=== PATIENT | female | born 1945 | race Caucasian/White ===

== ENCOUNTER 2017-11-19 11:16 | Emergency (ER) | payer MEDICARE ==
[~2017-11-19] VITALS: Ht 165.1 cm; Wt 105.7 kg
[~2017-11-19 11:16] MED LIST: ALLO100T30 PO; BUDE10.2 INH; CALC-451 PO; CEFD300C37 PO; CHOL200024 PO; FERR325T5 PO; LOVA10TA PO; METR500T PO; OMEP-110 PO; TIOT18CA INH
[2017-11-19 11:51] LABS: BASOPHILS # (AUTO) 0.02 x10^3/uL (0-0.1); BASOPHILS % (AUTO) 0 % (0-1); EOSINOPHILS % (AUTO) 2 % (1-7); LYMPHOCYTES # (AUTO) 1.07 x10^3/uL (1-3.4); LYMPHOCYTES % (AUTO) 15 % (22-44); MD NO; MEAN CORPUSCULAR HEMOGLOBIN 25.2 pg (27.0-34.8); MEAN CORPUSCULAR HGB CONC 31.8 g/dL (32.4-35.8); MEAN CORPUSCULAR VOLUME 79.3 fL (80-100); MONOCYTES % (AUTO) 6 % (2-9); NEUTROPHILS # (AUTO) 5.34 x10^3/uL (1.8-6.8); NEUTROPHILS % (AUTO) 77 % (42-75); PLATELET COUNT 170 x10^3/uL (130-400); RED BLOOD COUNT 3.69 x10^6/uL (3.82-5.3); RED CELL DISTRIBUTION WIDTH 15.9 % (9.6-15.2)
[2017-11-19 11:56] LABS: PROTHROMBIN TIME 10.3 Seconds (9.6-11.5)
[2017-11-19 12:00] LABS: ALBUMIN 3.5 g/dL (3.4-5.0); ANION GAP 3 mmol/L (5-15); CALCIUM 8.4 mg/dL (8.5-10.1); CHLORIDE 95 mmol/L (98-107)
[2017-11-19 12:05] LABS: ALANINE AMINOTRANSFERASE 19 U/L (12-78); ALKALINE PHOSPHATASE 67 U/L (45-117); BILIRUBIN,TOTAL 0.5 mg/dL (0.2-1.0); CREATININE 1.17 mg/dL (0.55-1.02)
[2017-11-19 12:13] VITALS: BP 189/66
== END 2017-11-19 12:56 | disposition home or self-care (01) ==
LOC: ED 12:43
DX: K92.1 Melena (principal); R53.83 Other fatigue; Z90.49 Acquired absence of other specified parts of digestive tract
CPT/HCPCS: 36415; 80053; 85025; 85610; 85730; 86677; 86850; 86900; 93005; 99285

== ENCOUNTER 2018-04-14 14:56 | Inpatient (IN) | payer MEDICARE ==
[~2018-04-14] VITALS: Ht 165.1 cm; Wt 113.5 kg
[2018-04-14] VITALS (7 sets, daily range): BP systolic 106–138; BP diastolic 44–80
[2018-04-14] MEDS ORDERED: methylPREDNISolone SOD SUCC 125 MG/2 ML IVP ONE (15:30)
[2018-04-14] MEDS ORDERED: MAGNESIUM SULFATE PMX 2GM/50ML 50 ML IVPB ONE (15:30)
[2018-04-14] MEDS ORDERED: ALBUTEROL/IPRATROPIUM 2.5MG/0.5MG, 3 ML NPPB ONE ×2 (15:30→18:00)
[2018-04-14] MEDS ORDERED: SODIUM CHLORIDE FLUSH 10ML SYR IVF ONE (15:30)
[2018-04-14] MEDS ORDERED: ALBUTEROL/IPRATROPIUM 2.5MG/0.5MG, 3 ML ONE (15:40)
[2018-04-14] MEDS ORDERED: methylPREDNISolone SOD SUCC 125 MG/2 ML ONE (15:41)
[2018-04-14 16:05] LABS: INTERNATIONAL NORMALIZED RATIO 0.96 (0.93-1.1); PROTHROMBIN TIME 9.9 Seconds (9.6-11.5)
[2018-04-14 16:07] LABS: ALBUMIN 3.1 g/dL (3.4-5.0)
[2018-04-14 16:09] LABS: MEAN CORPUSCULAR HGB CONC 31.5 g/dL (32.4-35.8); MEAN CORPUSCULAR VOLUME 79.6 fL (80-100); MEAN PLATELET VOLUME 7.4 fL (7.4-10.4); PLATELET COUNT 179 x10^3/uL (130-400); RED BLOOD COUNT 2.47 x10^6/uL (3.82-5.3); RED CELL DISTRIBUTION WIDTH 16.7 % (9.6-15.2)
[2018-04-14 16:11] LABS: TROPONIN I < 0.015 ng/mL (0.000-0.045)
[2018-04-14 16:21] LABS: ANION GAP 2 mmol/L (5-15); CALCIUM 8.5 mg/dL (8.5-10.1); CHLORIDE 87 mmol/L (98-107); CREATININE 1.09 mg/dL (0.55-1.02)
[2018-04-14 16:28] LABS: MD YES
[2018-04-14 16:35] LABS: ANISOCYTOSIS 1+; BAND#(MANUAL) 0.08 x10^3/uL; BANDS%(MANUAL) 1 % (0-7); BASOS#(MANUAL) 0.17 x10^3/uL (0-0.1); BASOS% (MANUAL) 2 % (0-1); EOS#(MANUAL) 0.17 x10^3/uL (0.0-0.4); EOS% (MANUAL) 2 % (1-7); HYPOCHROMIA 1+; LYMPHS% (MANUAL) 12 % (22-44); MICROCYTOSIS 1+; MONOS% (MANUAL) 6 % (2-9); SEG#(MANUAL) 6.39 x10^3/uL (1.8-6.8); SEGS% (MANUAL) 77 % (42-75)
[2018-04-14 16:37] LABS: OVALOCYTES 1+
[2018-04-14 16:44] LABS: STOMATOCYTES 1+
[2018-04-14 16:45] LABS: BASOPHILLIC STIPPLING 2+
[2018-04-14 16:49] LABS: <PLATELET ESTIMATE> ADEQUATE; <PLT MORPHOLOGY> NORMAL PLT MORPH
[2018-04-14] MEDS ORDERED: PANTOPRAZOLE 80 MG in SODIUM CHLORIDE 0.9% 100 ML IV SCH (17:49)
[2018-04-14] MEDS ORDERED: PANTOPRAZOLE 80 MG in SODIUM CHLORIDE 0.9% 50 ML IVPB ONE (17:49)
[2018-04-14] MEDS: PANTOPRAZOLE 80 MG in SODIUM CHLORIDE 0.9% 100 ML IV SCH (18:45)
[2018-04-14] MEDS ORDERED: SODIUM CHLORIDE FLUSH 10ML SYR IVF PRN (20:00)
[2018-04-14] MEDS ORDERED: DOCUSATE 100 MG CAPSULE PO PRN (20:30)
[2018-04-14] MEDS ORDERED: ONDANSETRON ODT 4 MG PO PRN (20:30)
[2018-04-14] MEDS ORDERED: TEMAZEPAM 15 MG CAPSULE PO PRN (20:30)
[2018-04-14] MEDS ORDERED: hydrALAzine 20 MG/ML, 1ML IVPush PRN (20:30)
[2018-04-14] MEDS: INSULIN LISPRO 100 UNITS/ML, PEN SQ-INSULIN SCH (21:00)
[2018-04-14] MEDS ORDERED: TEMPLATE NON-FORMULARY MED. (Budesonide/Formoterol Fumarate (Symbicort 160-4.5 Mcg Inhaler INH SCH (21:00)
[2018-04-14] MEDS ORDERED: IPRATROPIUM 0.5 MG/2.5 ML INHA HHN PRN (22:30)
[2018-04-15 00:15] VITALS: BP 128/76
[2018-04-15] MEDS: methylPREDNISolone SOD SUCC 40 MG/ML IVPush SCH ×3 (00:21→15:35)
[2018-04-15 00:22] VITALS: BP 128/76
[2018-04-15] MEDS: PANTOPRAZOLE 80 MG in SODIUM CHLORIDE 0.9% 100 ML IV SCH ×2 (04:19→16:19)
[2018-04-15 04:58] LABS: MEAN CORPUSCULAR HGB CONC 31.9 g/dL (32.4-35.8); MEAN CORPUSCULAR VOLUME 81.4 fL (80-100); MEAN PLATELET VOLUME 7.3 fL (7.4-10.4); PLATELET COUNT 180 x10^3/uL (130-400); RED BLOOD COUNT 3.35 x10^6/uL (3.82-5.3); RED CELL DISTRIBUTION WIDTH 16.3 % (9.6-15.2)
[2018-04-15 05:11] LABS: CALCIUM 8.9 mg/dL (8.5-10.1); CREATININE 0.99 mg/dL (0.55-1.02)
[2018-04-15 05:22] LABS: MD YES
[2018-04-15 05:24] LABS: ANISOCYTOSIS 1+; BAND#(MANUAL) 0.24 x10^3/uL; BANDS%(MANUAL) 3 % (0-7); LYMPH#(MANUAL) 0.32 x10^3/uL (1-3.4); LYMPHS% (MANUAL) 4 % (22-44); MONOS#(MANUAL) 0.08 x10^3/uL (0.3-2.7); MONOS% (MANUAL) 1 % (2-9); OVALOCYTES 1+; POLYCHROMASIA 1+; SEG#(MANUAL) 7.27 x10^3/uL (1.8-6.8); SEGS% (MANUAL) 92 % (42-75)
[2018-04-15 05:25] LABS: <PLATELET ESTIMATE> ADEQUATE; BASOPHILLIC STIPPLING 1+; MICROCYTOSIS 1+; STOMATOCYTES 1+
[2018-04-15 05:26] LABS: <PLT MORPHOLOGY> NORMAL PLT MORPH
[2018-04-15 05:36] LABS: ANION GAP 3 mmol/L (5-15); CHLORIDE 90 mmol/L (98-107)
[2018-04-15 06:49] VITALS: BP 126/84
[2018-04-15] MEDS: ALBUTEROL/IPRATROPIUM 2.5MG/0.5MG, 3 ML NPPB SCH ×4 (06:55→20:00)
[2018-04-15] MEDS: INSULIN LISPRO 100 UNITS/ML, PEN SQ-INSULIN SCH ×4 (07:00→21:03)
[2018-04-15] MEDS ORDERED: ACETAMINOPHEN 325 MG TABLET ONE (08:12)
[2018-04-15] MEDS ORDERED: ACETAMINOPHEN 325 MG TABLET PO PRN (08:30)
[2018-04-15 08:39] LABS: ALANINE AMINOTRANSFERASE 17 U/L (12-78); ALBUMIN 3.2 g/dL (3.4-5.0)
[2018-04-15] MEDS: FLUTICASONE/VILANTEROL 200-25MCG/INH INH SCH (08:40)
[2018-04-15 08:41] LABS: ALKALINE PHOSPHATASE 68 U/L (45-117); BILIRUBIN,TOTAL 0.4 mg/dL (0.2-1.0); TOTAL PROTEIN 7.4 g/dL (6.4-8.2)
[2018-04-15 09:08] LABS: HEMOGLOBIN A1C 4.7 % (4.2-6.3)
[2018-04-15 13:14] VITALS: BP 98/59
[2018-04-15] MEDS: SODIUM CHLORIDE 0.9% 1,000 ML IV SCH (15:36)
[2018-04-15 19:21] VITALS: BP 94/64
[2018-04-16] MEDS: methylPREDNISolone SOD SUCC 40 MG/ML IVPush SCH ×4 (00:16→23:52)
[2018-04-16] MEDS: SODIUM CHLORIDE 0.9% 1,000 ML IV SCH ×4 (00:16→23:52)
[2018-04-16] MEDS: PANTOPRAZOLE 80 MG in SODIUM CHLORIDE 0.9% 100 ML IV SCH ×3 (02:12→23:52)
[2018-04-16 02:22] VITALS: BP 138/79
[2018-04-16 05:42] LABS: BASOPHILS % (AUTO) 0 % (0-1); EOSINOPHILS % (AUTO) 0 % (1-7); LYMPHOCYTES # (AUTO) 0.49 x10^3/uL (1-3.4); LYMPHOCYTES % (AUTO) 5 % (22-44); MD NO; MEAN CORPUSCULAR HEMOGLOBIN 26.5 pg (27.0-34.8); MEAN CORPUSCULAR HGB CONC 32.2 g/dL (32.4-35.8); MEAN CORPUSCULAR VOLUME 82.3 fL (80-100); MEAN PLATELET VOLUME 7.5 fL (7.4-10.4); MONOCYTES # (AUTO) 0.16 x10^3/uL (0.2-0.8); MONOCYTES % (AUTO) 2 % (2-9); NEUTROPHILS # (AUTO) 9.12 x10^3/uL (1.8-6.8); NEUTROPHILS % (AUTO) 93 % (42-75); PLATELET COUNT 192 x10^3/uL (130-400); RED BLOOD COUNT 3.29 x10^6/uL (3.82-5.3); RED CELL DISTRIBUTION WIDTH 16.4 % (9.6-15.2)
[2018-04-16 05:59] LABS: HEMOGLOBIN A1C 4.7 % (4.2-6.3)
[2018-04-16] MEDS: ALBUTEROL/IPRATROPIUM 2.5MG/0.5MG, 3 ML NPPB SCH ×4 (08:10→20:14)
[2018-04-16 08:22] VITALS: BP 122/79
[2018-04-16] MEDS: INSULIN LISPRO 100 UNITS/ML, PEN SQ-INSULIN SCH ×4 (08:24→19:35)
[2018-04-16] MEDS: FLUTICASONE/VILANTEROL 200-25MCG/INH INH SCH (08:25)
[2018-04-16] MEDS ORDERED: ALBUTEROL SULFATE 2.5 MG/3 ML NPPB PRN (12:30)
[2018-04-16 19:21] LABS: BASOPHILS # (AUTO) 0.13 x10^3/uL (0-0.1); BASOPHILS % (AUTO) 1 % (0-1); EOSINOPHILS # (AUTO) 0.01 x10^3/uL (0-0.4); EOSINOPHILS % (AUTO) 0 % (1-7); LYMPHOCYTES # (AUTO) 0.42 x10^3/uL (1-3.4); LYMPHOCYTES % (AUTO) 4 % (22-44); MD NO; MEAN CORPUSCULAR HEMOGLOBIN 26.3 pg (27.0-34.8); MEAN CORPUSCULAR VOLUME 82.3 fL (80-100); MEAN PLATELET VOLUME 7.3 fL (7.4-10.4); MONOCYTES % (AUTO) 3 % (2-9); NEUTROPHILS # (AUTO) 10.71 x10^3/uL (1.8-6.8); NEUTROPHILS % (AUTO) 93 % (42-75); PLATELET COUNT 222 x10^3/uL (130-400); RED CELL DISTRIBUTION WIDTH 15.8 % (9.6-15.2)
[2018-04-16 19:33] LABS: CALCIUM 8.1 mg/dL (8.5-10.1); CREATININE 1.15 mg/dL (0.55-1.02)
[2018-04-16 19:48] LABS: ANION GAP 7 mmol/L (5-15); CHLORIDE 95 mmol/L (98-107)
[2018-04-16 20:33] VITALS: BP 110/72
[2018-04-17 01:50] VITALS: BP 115/54
[2018-04-17] MEDS: ALBUTEROL/IPRATROPIUM 2.5MG/0.5MG, 3 ML NPPB SCH ×4 (03:00→21:00)
[2018-04-17] MEDS: INSULIN LISPRO 100 UNITS/ML, PEN SQ-INSULIN SCH ×4 (07:00→20:09)
[2018-04-17 07:14] VITALS: BP 110/71
[2018-04-17] MEDS: SODIUM CHLORIDE 0.9% 1,000 ML IV SCH ×2 (07:53→18:00)
[2018-04-17] MEDS: methylPREDNISolone SOD SUCC 40 MG/ML IVPush SCH ×2 (07:53→16:00)
[2018-04-17] MEDS: FLUTICASONE/VILANTEROL 200-25MCG/INH INH SCH (07:53)
[2018-04-17] MEDS: PANTOPRAZOLE 80 MG in SODIUM CHLORIDE 0.9% 100 ML IV SCH ×2 (10:28→20:09)
[2018-04-17] MEDS ORDERED: FENTANYL PF 100 MCG/2ML ONE (12:08)
[2018-04-17] MEDS ORDERED: MIDAZOLAM 1 MG/ML, 5ML ONE (12:08)
[2018-04-17 13:00] VITALS: BP 137/74
[2018-04-17 18:13] LABS: % IRON SATURATION 6 % (20-55); IRON LEVEL 23 mcg/dL (50-170); TOTAL IRON BINDING CAPACITY 390 mcg/dL (250-450)
[2018-04-17 20:23] VITALS: BP 105/73
[2018-04-18] MEDS: methylPREDNISolone SOD SUCC 40 MG/ML IVPush SCH ×4 (00:50→23:59)
[2018-04-18 02:14] VITALS: BP 103/61
[2018-04-18] MEDS: SODIUM CHLORIDE 0.9% 1,000 ML IV SCH ×3 (02:19→19:20)
[2018-04-18] MEDS: ALBUTEROL/IPRATROPIUM 2.5MG/0.5MG, 3 ML NPPB SCH ×4 (03:00→19:51)
[2018-04-18 04:39] LABS: CHLORIDE 98 mmol/L (98-107)
[2018-04-18 04:44] LABS: ANION GAP 4 mmol/L (5-15); CALCIUM 8.1 mg/dL (8.5-10.1)
[2018-04-18 04:45] LABS: ALANINE AMINOTRANSFERASE 24 U/L (12-78); ALKALINE PHOSPHATASE 60 U/L (45-117); BILIRUBIN,TOTAL 0.3 mg/dL (0.2-1.0); TOTAL PROTEIN 6.7 g/dL (6.4-8.2)
[2018-04-18 05:09] LABS: BASOPHILS % (AUTO) 0 % (0-1); EOSINOPHILS # (AUTO) 0.02 x10^3/uL (0-0.4); EOSINOPHILS % (AUTO) 0 % (1-7); LYMPHOCYTES # (AUTO) 0.63 x10^3/uL (1-3.4); LYMPHOCYTES % (AUTO) 7 % (22-44); MD NO; MEAN CORPUSCULAR HEMOGLOBIN 26.3 pg (27.0-34.8); MEAN CORPUSCULAR HGB CONC 31.9 g/dL (32.4-35.8); MEAN CORPUSCULAR VOLUME 82.3 fL (80-100); MEAN PLATELET VOLUME 7.3 fL (7.4-10.4); MONOCYTES # (AUTO) 0.24 x10^3/uL (0.2-0.8); MONOCYTES % (AUTO) 3 % (2-9); NEUTROPHILS # (AUTO) 8.34 x10^3/uL (1.8-6.8); NEUTROPHILS % (AUTO) 90 % (42-75); PLATELET COUNT 210 x10^3/uL (130-400); RED BLOOD COUNT 3.56 x10^6/uL (3.82-5.3); RED CELL DISTRIBUTION WIDTH 16.3 % (9.6-15.2)
[2018-04-18] MEDS: PANTOPRAZOLE 80 MG in SODIUM CHLORIDE 0.9% 100 ML IV SCH ×2 (06:15→16:52)
[2018-04-18] MEDS: INSULIN LISPRO 100 UNITS/ML, PEN SQ-INSULIN SCH ×4 (07:00→21:20)
[2018-04-18 08:06] VITALS: BP 123/76
[2018-04-18] MEDS: FLUTICASONE/VILANTEROL 200-25MCG/INH INH SCH (08:22)
[2018-04-18] MEDS: IRON SUCROSE COMPLEX 100MG/5ML IV SCH (09:09)
[2018-04-18 14:09] VITALS: BP 108/69
[2018-04-18 20:00] VITALS: BP 115/67
[2018-04-19 01:47] VITALS: BP 124/75
[2018-04-19] MEDS: PANTOPRAZOLE 80 MG in SODIUM CHLORIDE 0.9% 100 ML IV SCH (02:56)
[2018-04-19] MEDS: ALBUTEROL/IPRATROPIUM 2.5MG/0.5MG, 3 ML NPPB SCH ×3 (03:00→15:00)
[2018-04-19] MEDS: SODIUM CHLORIDE 0.9% 1,000 ML IV SCH ×4 (03:08→17:10)
[2018-04-19] MEDS: INSULIN LISPRO 100 UNITS/ML, PEN SQ-INSULIN SCH ×3 (07:00→16:42)
[2018-04-19 08:05] VITALS: BP 98/62
[2018-04-19] MEDS: methylPREDNISolone SOD SUCC 40 MG/ML IVPush SCH ×2 (08:25→16:00)
[2018-04-19] MEDS: FLUTICASONE/VILANTEROL 200-25MCG/INH INH SCH (08:25)
[2018-04-19] MEDS: IRON SUCROSE COMPLEX 100MG/5ML IV SCH (08:25)
[2018-04-19] MEDS ORDERED: PRED10TA PO (09:44)
[2018-04-19] MEDS ORDERED: FERR325T18 PO (09:44)
[2018-04-19] MEDS ORDERED: IPRA3AMP30 NPPB (09:44)
[2018-04-19] MEDS ORDERED: AZIT500T5 PO (09:44)
[2018-04-19] MEDS ORDERED: ONDA4TAB13 PO (09:44)
[2018-04-19] MEDS ORDERED: SUCR1TAB33 PO (09:46)
[2018-04-19] MEDS ORDERED: OMEP-110 PO (09:46)
[2018-04-19] MEDS ORDERED: OMEPRAZOLE 20 MG CAPSULE.DR PO SCH (11:30)
[2018-04-19] MEDS ORDERED: OMNIPAQUE 350 MG/ML, 100ML BOTTLE ONE (11:33)
[2018-04-19 12:20] VITALS: BP 108/63
== END 2018-04-19 18:39 | disposition home or self-care (01) | DRG 393 ==
LOC: ED 17:46 → 4WST 21:32
PROVIDERS: ADMIT Family Medicine; ATTEND Internal Medicine
PROC: 30233N1 Transfusion of Nonautologous Red Blood Cells into Peripheral Vein, Percutaneous Approach (ICD-10-PCS; principal; 2018-04-14)
PROC: 0DB78ZX Excision of Stomach, Pylorus, Via Natural or Artificial Opening Endoscopic, Diagnostic (ICD-10-PCS; 2018-04-17)
PROC: 0DB68ZZ Excision of Stomach, Via Natural or Artificial Opening Endoscopic (ICD-10-PCS; 2018-04-17)
PROC: 0W3P8ZZ Control Bleeding in Gastrointestinal Tract, Via Natural or Artificial Opening Endoscopic (ICD-10-PCS; 2018-04-17)
DX: K31.7 Polyp of stomach and duodenum (principal); J96.20 Acute and chronic respiratory failure, unspecified whether with hypoxia or hypercapnia; K92.2 Gastrointestinal hemorrhage, unspecified; J44.1 Chronic obstructive pulmonary disease with (acute) exacerbation; D62 Acute posthemorrhagic anemia; E87.1 Hypo-osmolality and hyponatremia; Z68.41 Body mass index [BMI] 40.0-44.9, adult; E66.01 Morbid (severe) obesity due to excess calories; E87.5 Hyperkalemia; E78.5 Hyperlipidemia, unspecified; D50.9 Iron deficiency anemia, unspecified; K29.60 Other gastritis without bleeding; K59.09 Other constipation; K21.0 Gastro-esophageal reflux disease with esophagitis; I11.9 Hypertensive heart disease without heart failure; N28.9 Disorder of kidney and ureter, unspecified; K44.9 Diaphragmatic hernia without obstruction or gangrene; Z86.010 Personal history of colon polyps; Z87.442 Personal history of urinary calculi; Z86.718 Personal history of other venous thrombosis and embolism; Z87.891 Personal history of nicotine dependence; Z99.81 Dependence on supplemental oxygen; Z90.49 Acquired absence of other specified parts of digestive tract
CPT/HCPCS: 36415; 36430; 71045; 71275; 80048; 80053; 82040; 82962; 83036; 83540; 83550; 84484; 85014; 85018; 85025; 85610; 85730; 86850; 86900; 86923; 88305; 93005; 94640; 96365; 96366; 96375; 99152; 99153; G0378; J1756; J2250; J3010; J7620; Q9967; C9113; J1815; J2920; J2930; J3475; J7030; P9016

== ENCOUNTER 2018-04-27 09:56 | Inpatient (IN) | payer MEDICARE ==
[~2018-04-27] VITALS: Ht 167.6 cm; Wt 99.1 kg
[~2018-04-27 09:56] MED LIST changes: +AZIT500T5 PO; +FERR325T18 PO; +IPRA3AMP30 NPPB; +ONDA4TAB13 PO; +PRED10TA PO; +SUCR1TAB33 PO
[2018-04-27] MEDS ORDERED: SODIUM CHLORIDE 0.9% 1,000ML IVBOLUS ONE ×2 (10:30→13:00)
[2018-04-27] MEDS ORDERED: OMNIPAQUE 350 MG/ML, 100ML BOTTLE ONE (10:33)
[2018-04-27] MEDS ORDERED: ALBUTEROL/IPRATROPIUM 2.5MG/0.5MG, 3 ML ONE (10:34)
[2018-04-27 10:40] LABS: MEAN CORPUSCULAR HEMOGLOBIN 26.3 pg (27.0-34.8); MEAN CORPUSCULAR HGB CONC 31.6 g/dL (32.4-35.8); MEAN CORPUSCULAR VOLUME 83.2 fL (80-100); MEAN PLATELET VOLUME 7.9 fL (7.4-10.4); PLATELET COUNT 298 x10^3/uL (130-400); RED BLOOD COUNT 4.06 x10^6/uL (3.82-5.3); RED CELL DISTRIBUTION WIDTH 17.7 % (9.6-15.2)
[2018-04-27 10:51] LABS: ANION GAP 8 mmol/L (5-15); CALCIUM 8.9 mg/dL (8.5-10.1); CHLORIDE 91 mmol/L (98-107); CREATININE 1.43 mg/dL (0.55-1.02)
[2018-04-27 10:55] LABS: TROPONIN I < 0.015 ng/mL (0.000-0.045)
[2018-04-27 11:00] LABS: MD YES
[2018-04-27] MEDS ORDERED: PIPERACILLIN/TAZO/PMX 3.375GM 50 ML IVPB ONE (11:00)
[2018-04-27] MEDS ORDERED: PIPERACILLIN/TAZO/PMX 3.375GM 50 ML ONE (11:00)
[2018-04-27] MEDS ORDERED: ALBUTEROL/IPRATROPIUM 2.5MG/0.5MG, 3 ML NEB ONE (11:00)
[2018-04-27] MEDS ORDERED: VANCOMYCIN PER PHARMACY MC ONE (11:00)
[2018-04-27] MEDS ORDERED: VANCOMYCIN 1,500 MG in SODIUM CHLORIDE 0.9% 250 ML IV ONE (11:00)
[2018-04-27 11:01] LABS: ANISOCYTOSIS 1+; BAND#(MANUAL) 1.49 x10^3/uL; BANDS%(MANUAL) 3 % (0-7); LYMPH#(MANUAL) 2.49 x10^3/uL (1-3.4); LYMPHS% (MANUAL) 5 % (22-44); MONOS#(MANUAL) 1.49 x10^3/uL (0.3-2.7); MONOS% (MANUAL) 3 % (2-9); POLYCHROMASIA 1+; SEG#(MANUAL) 44.32 x10^3/uL (1.8-6.8); SEGS% (MANUAL) 89 % (42-75)
[2018-04-27 11:02] LABS: <PLATELET ESTIMATE> ADEQUATE; <PLT MORPHOLOGY> NORMAL PLT MORPH
[2018-04-27] MEDS ORDERED: VANCOMYCIN PER PHARMACY MC PRN (12:00)
[2018-04-27] MEDS ORDERED: PIPERACILLIN/TAZO/PMX 4.5GM 100 ML IV SCH (12:00)
[2018-04-27] MEDS ORDERED: PHARMACY MAY ADJ FOR RENAL FX MC PRN (12:00)
[2018-04-27] MEDS: SODIUM CHLORIDE 0.9% 1,000 ML IV SCH ×2 (12:05→21:00)
[2018-04-27] MEDS ORDERED: ACETAMINOPHEN 325 MG TABLET PO PRN (12:30)
[2018-04-27] MEDS ORDERED: ONDANSETRON ODT 4 MG PO PRN (12:30)
[2018-04-27] MEDS ORDERED: HEPARIN 5,000 UNITS/ML, 1ML SQ SCH (12:30)
[2018-04-27 12:38] VITALS: BP 106/75
[2018-04-27] MEDS ORDERED: PHARMACOKINETIC CONSULTATION MC ONE (13:00)
[2018-04-27] MEDS ORDERED: PHARMACOKINETIC MONITORING MC PRN (13:00)
[2018-04-27] MEDS ORDERED: IPRATROPIUM 0.5 MG/2.5 ML INHA NPPB PRN (13:00)
[2018-04-27 13:02] VITALS: BP 106/65
[2018-04-27] MEDS: ALBUTEROL/IPRATROPIUM 2.5MG/0.5MG, 3 ML NPPB SCH ×2 (14:56→19:44)
[2018-04-27] MEDS: SUCRALFATE 1 GM/10 ML UDC PO SCH ×2 (17:20→20:37)
[2018-04-27] MEDS: PIPERACILLIN/TAZO/PMX 4.5GM 100 ML IV SCH ×2 (17:20→22:59)
[2018-04-27 20:00] VITALS: BP 148/99
[2018-04-27] MEDS: LOVASTATIN 10 MG TABLET PO SCH (20:37)
[2018-04-28 01:49] VITALS: BP 120/70
[2018-04-28] MEDS: SODIUM CHLORIDE 0.9% 1,000 ML IV SCH ×3 (05:04→23:03)
[2018-04-28] MEDS: PIPERACILLIN/TAZO/PMX 4.5GM 100 ML IV SCH ×4 (05:04→23:03)
[2018-04-28 05:38] LABS: CHLORIDE 101 mmol/L (98-107)
[2018-04-28 05:48] LABS: ALANINE AMINOTRANSFERASE 53 U/L (12-78); ALBUMIN 2.1 g/dL (3.4-5.0); ALKALINE PHOSPHATASE 81 U/L (45-117); ANION GAP 3 mmol/L (5-15); BILIRUBIN,TOTAL 0.6 mg/dL (0.2-1.0); CALCIUM 7.9 mg/dL (8.5-10.1); CREATININE 1.24 mg/dL (0.55-1.02); TOTAL PROTEIN 5.7 g/dL (6.4-8.2)
[2018-04-28 05:50] LABS: MEAN CORPUSCULAR HEMOGLOBIN 26.7 pg (27.0-34.8); MEAN CORPUSCULAR HGB CONC 31.7 g/dL (32.4-35.8); MEAN CORPUSCULAR VOLUME 84.1 fL (80-100); PLATELET COUNT 190 x10^3/uL (130-400); RED BLOOD COUNT 3.37 x10^6/uL (3.82-5.3)
[2018-04-28 06:06] LABS: MD YES
[2018-04-28 06:08] LABS: BAND#(MANUAL) 1.31 x10^3/uL; BANDS%(MANUAL) 5 % (0-7); LYMPH#(MANUAL) 0.78 x10^3/uL (1-3.4); LYMPHS% (MANUAL) 3 % (22-44); MONOS#(MANUAL) 2.09 x10^3/uL (0.3-2.7); MONOS% (MANUAL) 8 % (2-9); SEG#(MANUAL) 21.92 x10^3/uL (1.8-6.8); SEGS% (MANUAL) 84 % (42-75)
[2018-04-28 06:09] LABS: <PLATELET ESTIMATE> ADEQUATE; <PLT MORPHOLOGY> NORMAL PLT MORPH; ANISOCYTOSIS 1+; BASOPHILLIC STIPPLING 1+; OVALOCYTES 1+; POLYCHROMASIA 1+
[2018-04-28 07:00] VITALS: BP 102/62
[2018-04-28] MEDS: ALBUTEROL/IPRATROPIUM 2.5MG/0.5MG, 3 ML NPPB SCH ×4 (07:00→19:24)
[2018-04-28] MEDS: FERROUS SULFATE 325 MG TABLET PO SCH (08:07)
[2018-04-28] MEDS: ALLOPURINOL 100 MG TABLET PO SCH (08:08)
[2018-04-28] MEDS: OMEPRAZOLE 20 MG CAPSULE.DR PO SCH (08:08)
[2018-04-28] MEDS: SUCRALFATE 1 GM/10 ML UDC PO SCH ×4 (08:08→20:38)
[2018-04-28] MEDS: GUAIFENESIN ER 600 MG TABLET PO SCH ×2 (09:17→20:37)
[2018-04-28] MEDS: methylPREDNISolone SOD SUCC 125 MG/2 ML IVPush SCH ×3 (09:17→20:37)
[2018-04-28] MEDS: FLUTICASONE/VILANTEROL 200-25MCG/INH INH SCH (09:17)
[2018-04-28] MEDS: VANCOMYCIN 1,500 MG in SODIUM CHLORIDE 0.9% 250 ML IV SCH (13:05)
[2018-04-28 13:42] VITALS: BP 114/67
[2018-04-28 19:08] VITALS: BP 97/66
[2018-04-28] MEDS: LOVASTATIN 10 MG TABLET PO SCH (20:37)
[2018-04-28 23:56] VITALS: BP 130/78
[2018-04-29] MEDS ORDERED: VANCOMYCIN 1,500 MG in SODIUM CHLORIDE 0.9% 250 ML IV SCH
[2018-04-29] MEDS: methylPREDNISolone SOD SUCC 125 MG/2 ML IVPush SCH ×4 (02:40→20:15)
[2018-04-29] MEDS: PIPERACILLIN/TAZO/PMX 4.5GM 100 ML IV SCH ×4 (05:01→23:03)
[2018-04-29 05:15] LABS: MEAN CORPUSCULAR HGB CONC 30.6 g/dL (32.4-35.8); MEAN CORPUSCULAR VOLUME 84.9 fL (80-100); PLATELET COUNT 186 x10^3/uL (130-400); RED BLOOD COUNT 3.54 x10^6/uL (3.82-5.3); RED CELL DISTRIBUTION WIDTH 17.3 % (9.6-15.2)
[2018-04-29 05:22] LABS: ANION GAP 5 mmol/L (5-15); CALCIUM 8.1 mg/dL (8.5-10.1); CHLORIDE 103 mmol/L (98-107)
[2018-04-29 05:24] LABS: CREATININE 1.33 mg/dL (0.55-1.02)
[2018-04-29 05:50] LABS: BASOPHILS % (AUTO) 0 % (0-1); EOSINOPHILS % (AUTO) 0 % (1-7); LYMPHOCYTES # (AUTO) 0.23 x10^3/uL (1-3.4); LYMPHOCYTES % (AUTO) 1 % (22-44); MD SCAN; MONOCYTES # (AUTO) 0.14 x10^3/uL (0.2-0.8); MONOCYTES % (AUTO) 1 % (2-9); NEUTROPHILS % (AUTO) 98 % (42-75)
[2018-04-29] MEDS: SODIUM CHLORIDE 0.9% 1,000 ML IV SCH ×3 (06:30→23:03)
[2018-04-29] MEDS: ALBUTEROL/IPRATROPIUM 2.5MG/0.5MG, 3 ML NPPB SCH ×4 (06:46→18:56)
[2018-04-29 06:55] VITALS: BP 94/54
[2018-04-29] MEDS: FERROUS SULFATE 325 MG TABLET PO SCH (08:05)
[2018-04-29] MEDS: OMEPRAZOLE 20 MG CAPSULE.DR PO SCH (08:05)
[2018-04-29] MEDS: SUCRALFATE 1 GM/10 ML UDC PO SCH ×4 (08:05→20:15)
[2018-04-29] MEDS: ALLOPURINOL 100 MG TABLET PO SCH (08:05)
[2018-04-29] MEDS: FLUTICASONE/VILANTEROL 200-25MCG/INH INH SCH (08:06)
[2018-04-29] MEDS: GUAIFENESIN ER 600 MG TABLET PO SCH ×2 (08:19→20:15)
[2018-04-29 12:36] VITALS: BP 101/70
[2018-04-29] MEDS: VANCOMYCIN 1,500 MG in SODIUM CHLORIDE 0.9% 250 ML IV SCH (13:58)
[2018-04-29] MEDS: LOVASTATIN 10 MG TABLET PO SCH (20:15)
[2018-04-29 20:38] VITALS: BP 94/65
[2018-04-30 00:45] VITALS: BP 97/64
[2018-04-30] MEDS: methylPREDNISolone SOD SUCC 125 MG/2 ML IVPush SCH ×4 (02:41→21:46)
[2018-04-30 05:01] LABS: MEAN CORPUSCULAR HEMOGLOBIN 26.1 pg (27.0-34.8); MEAN CORPUSCULAR HGB CONC 30.7 g/dL (32.4-35.8); MEAN PLATELET VOLUME 7.5 fL (7.4-10.4); PLATELET COUNT 229 x10^3/uL (130-400); RED BLOOD COUNT 3.44 x10^6/uL (3.82-5.3)
[2018-04-30] MEDS: PIPERACILLIN/TAZO/PMX 4.5GM 100 ML IV SCH (05:04)
[2018-04-30 05:11] LABS: ANION GAP 6 mmol/L (5-15); CALCIUM 7.9 mg/dL (8.5-10.1); CHLORIDE 104 mmol/L (98-107)
[2018-04-30 05:12] LABS: CREATININE 1.29 mg/dL (0.55-1.02)
[2018-04-30 06:04] LABS: MD YES
[2018-04-30 06:14] LABS: <PLATELET ESTIMATE> ADEQUATE; <PLT MORPHOLOGY> NORMAL PLT MORPH; ANISOCYTOSIS 1+; LYMPH#(MANUAL) 0.49 x10^3/uL (1-3.4); LYMPHS% (MANUAL) 2 % (22-44); MONOS#(MANUAL) 0.98 x10^3/uL (0.3-2.7); MONOS% (MANUAL) 4 % (2-9); SEG#(MANUAL) 23.12 x10^3/uL (1.8-6.8); SEGS% (MANUAL) 94 % (42-75)
[2018-04-30] MEDS: SODIUM CHLORIDE 0.9% 1,000 ML IV SCH (06:30)
[2018-04-30 07:02] VITALS: BP 105/68
[2018-04-30] MEDS: ALBUTEROL/IPRATROPIUM 2.5MG/0.5MG, 3 ML NPPB SCH ×4 (07:05→19:31)
[2018-04-30] MEDS: FERROUS SULFATE 325 MG TABLET PO SCH (08:54)
[2018-04-30] MEDS: OMEPRAZOLE 20 MG CAPSULE.DR PO SCH (08:55)
[2018-04-30] MEDS: SUCRALFATE 1 GM/10 ML UDC PO SCH ×4 (08:55→20:11)
[2018-04-30] MEDS: ALLOPURINOL 100 MG TABLET PO SCH (08:55)
[2018-04-30] MEDS: GUAIFENESIN ER 600 MG TABLET PO SCH ×2 (08:55→20:12)
[2018-04-30] MEDS: FLUTICASONE/VILANTEROL 200-25MCG/INH INH SCH (09:29)
[2018-04-30 09:30] LABS: CLOSTRIDIUM DIFFICILE ANTIGEN NEGATIVE; CLOSTRIDIUM DIFFICILE TOXIN NEGATIVE (Negative)
[2018-04-30] MEDS ORDERED: FUROSEMIDE 20 MG/2 ML ONE (11:06)
[2018-04-30] MEDS ORDERED: FUROSEMIDE 20 MG/2 ML IV ONE ×2 (11:30)
[2018-04-30 12:41] VITALS: BP 81/52
[2018-04-30] MEDS: CEFTRIAXONE 2 GM in SODIUM CHLORIDE 0.9% 50 ML IV SCH (13:04)
[2018-04-30] MEDS: DOXYCYCLINE 100MG TABLET PO SCH ×2 (14:11→20:11)
[2018-04-30 16:33] VITALS: BP 97/67
[2018-04-30 16:34] VITALS: BP 134/74
[2018-04-30 18:58] VITALS: BP 101/68
[2018-04-30] MEDS: LOVASTATIN 10 MG TABLET PO SCH (20:11)
[2018-05-01 02:07] VITALS: BP 132/81
[2018-05-01] MEDS: methylPREDNISolone SOD SUCC 125 MG/2 ML IVPush SCH ×4 (04:32→22:34)
[2018-05-01] MEDS: ALBUTEROL/IPRATROPIUM 2.5MG/0.5MG, 3 ML NPPB SCH ×4 (06:45→18:58)
[2018-05-01 07:25] VITALS: BP 116/73
[2018-05-01] MEDS: FLUTICASONE/VILANTEROL 200-25MCG/INH INH SCH (08:26)
[2018-05-01] MEDS: SUCRALFATE 1 GM/10 ML UDC PO SCH ×4 (08:26→20:34)
[2018-05-01] MEDS: GUAIFENESIN ER 600 MG TABLET PO SCH ×2 (08:27→20:34)
[2018-05-01] MEDS: DOXYCYCLINE 100MG TABLET PO SCH ×2 (08:27→20:34)
[2018-05-01] MEDS: FERROUS SULFATE 325 MG TABLET PO SCH (08:27)
[2018-05-01] MEDS: ALLOPURINOL 100 MG TABLET PO SCH (08:27)
[2018-05-01] MEDS: OMEPRAZOLE 20 MG CAPSULE.DR PO SCH (08:27)
[2018-05-01 09:57] LABS: ANION GAP 5 mmol/L (5-15); CALCIUM 8.9 mg/dL (8.5-10.1); CHLORIDE 102 mmol/L (98-107); CREATININE 1.61 mg/dL (0.55-1.02)
[2018-05-01 10:04] LABS: MEAN CORPUSCULAR HEMOGLOBIN 25.5 pg (27.0-34.8); MEAN CORPUSCULAR HGB CONC 30.1 g/dL (32.4-35.8); MEAN CORPUSCULAR VOLUME 84.5 fL (80-100); MEAN PLATELET VOLUME 7.1 fL (7.4-10.4); PLATELET COUNT 231 x10^3/uL (130-400); RED BLOOD COUNT 3.35 x10^6/uL (3.82-5.3); RED CELL DISTRIBUTION WIDTH 17.3 % (9.6-15.2)
[2018-05-01 10:23] LABS: O2 FLOW 6 L/min
[2018-05-01] MEDS ORDERED: FUROSEMIDE 20 MG TABLET ONE (11:00)
[2018-05-01 11:03] LABS: BASOPHILS % (AUTO) 0 % (0-1); EOSINOPHILS % (AUTO) 0 % (1-7); LYMPHOCYTES # (AUTO) 0.24 x10^3/uL (1-3.4); LYMPHOCYTES % (AUTO) 2 % (22-44); MD SCAN; MONOCYTES # (AUTO) 0.14 x10^3/uL (0.2-0.8); MONOCYTES % (AUTO) 1 % (2-9); NEUTROPHILS # (AUTO) 14.99 x10^3/uL (1.8-6.8); NEUTROPHILS % (AUTO) 98 % (42-75)
[2018-05-01] MEDS ORDERED: FUROSEMIDE 20 MG/2 ML IV ONE ×2 (11:30→12:00)
[2018-05-01] MEDS: CEFTRIAXONE 2 GM in SODIUM CHLORIDE 0.9% 50 ML IV SCH (12:02)
[2018-05-01] MEDS ORDERED: AcetaZOLAMIDE INJ 500 MG ONE (18:22)
[2018-05-01] MEDS ORDERED: AcetaZOLAMIDE INJ 500 MG IVPush ONE (18:30)
[2018-05-01 20:16] LABS: OCCULT BLOOD POSITIVE (NEGATIVE)
[2018-05-01] MEDS: LOVASTATIN 10 MG TABLET PO SCH (20:59)
[2018-05-02] MEDS: methylPREDNISolone SOD SUCC 125 MG/2 ML IVPush SCH ×4 (04:21→21:10)
[2018-05-02 05:00] VITALS: BP 130/59
[2018-05-02 05:38] LABS: ANION GAP 6 mmol/L (5-15); CALCIUM 8.7 mg/dL (8.5-10.1); CHLORIDE 102 mmol/L (98-107)
[2018-05-02 05:39] LABS: CREATININE 1.59 mg/dL (0.55-1.02); MEAN CORPUSCULAR HEMOGLOBIN 26.1 pg (27.0-34.8); MEAN CORPUSCULAR HGB CONC 31.4 g/dL (32.4-35.8); MEAN CORPUSCULAR VOLUME 83.1 fL (80-100); MEAN PLATELET VOLUME 6.9 fL (7.4-10.4); PLATELET COUNT 222 x10^3/uL (130-400); RED BLOOD COUNT 3.21 x10^6/uL (3.82-5.3); RED CELL DISTRIBUTION WIDTH 17.2 % (9.6-15.2)
[2018-05-02 06:12] LABS: BASOPHILS % (AUTO) 0 % (0-1); EOSINOPHILS # (AUTO) 0.02 x10^3/uL (0-0.4); EOSINOPHILS % (AUTO) 0 % (1-7); LYMPHOCYTES # (AUTO) 0.25 x10^3/uL (1-3.4); LYMPHOCYTES % (AUTO) 3 % (22-44); MD SCAN; MONOCYTES # (AUTO) 0.11 x10^3/uL (0.2-0.8); MONOCYTES % (AUTO) 1 % (2-9); NEUTROPHILS # (AUTO) 9.41 x10^3/uL (1.8-6.8); NEUTROPHILS % (AUTO) 96 % (42-75)
[2018-05-02] MEDS: ALBUTEROL/IPRATROPIUM 2.5MG/0.5MG, 3 ML NPPB SCH ×4 (07:00→18:33)
[2018-05-02] MEDS ORDERED: AcetaZOLAMIDE INJ 500 MG IVPush SCH (09:00)
[2018-05-02] MEDS: GUAIFENESIN ER 600 MG TABLET PO SCH ×2 (09:51→21:09)
[2018-05-02] MEDS: SUCRALFATE 1 GM/10 ML UDC PO SCH ×4 (09:51→21:09)
[2018-05-02] MEDS: DOXYCYCLINE 100MG TABLET PO SCH ×2 (09:51→21:09)
[2018-05-02] MEDS: OMEPRAZOLE 20 MG CAPSULE.DR PO SCH ×2 (09:51→21:09)
[2018-05-02] MEDS: FERROUS SULFATE 325 MG TABLET PO SCH (09:51)
[2018-05-02] MEDS: FUROSEMIDE 20 MG/2 ML IV SCH (09:51)
[2018-05-02] MEDS: ALLOPURINOL 100 MG TABLET PO SCH (09:51)
[2018-05-02] MEDS: CHOLESTYRAMINE LIGHT 4GM PACKET PO SCH ×2 (09:55→21:09)
[2018-05-02] MEDS: FLUTICASONE/VILANTEROL 200-25MCG/INH INH SCH (09:55)
[2018-05-02] MEDS: INSULIN LISPRO 100 UNITS/ML, PEN SQ-INSULIN SCH ×3 (13:26→21:15)
[2018-05-02] MEDS: HEPARIN 5,000 UNITS/ML, 1ML SQ SCH ×2 (13:26→21:10)
[2018-05-02] MEDS: CEFTRIAXONE 2 GM in SODIUM CHLORIDE 0.9% 50 ML IV SCH (13:27)
[2018-05-02] MEDS: LOVASTATIN 10 MG TABLET PO SCH (21:09)
[2018-05-03] MEDS ORDERED: DIPHENHYDRAMINE 25 MG CAPSULE ONE (01:36)
[2018-05-03 04:40] LABS: ANION GAP 8 mmol/L (5-15); CHLORIDE 98 mmol/L (98-107); CREATININE 1.33 mg/dL (0.55-1.02)
[2018-05-03 05:00] VITALS: BP 95/44
[2018-05-03] MEDS: HEPARIN 5,000 UNITS/ML, 1ML SQ SCH ×3 (05:07→20:49)
[2018-05-03] MEDS: methylPREDNISolone SOD SUCC 125 MG/2 ML IVPush SCH (05:07)
[2018-05-03] MEDS: SUCRALFATE 1 GM/10 ML UDC PO SCH ×4 (06:22→20:49)
[2018-05-03] MEDS: INSULIN LISPRO 100 UNITS/ML, PEN SQ-INSULIN SCH ×4 (06:22→21:36)
[2018-05-03] MEDS: ALBUTEROL/IPRATROPIUM 2.5MG/0.5MG, 3 ML NPPB SCH ×4 (06:45→19:27)
[2018-05-03] MEDS ORDERED: POTASSIUM CHLORIDE 20 MEQ TAB.ER.PRT PO ONE (07:30)
[2018-05-03] MEDS: FERROUS SULFATE 325 MG TABLET PO SCH (08:37)
[2018-05-03] MEDS: FUROSEMIDE 20 MG/2 ML IV SCH (08:37)
[2018-05-03] MEDS: OMEPRAZOLE 20 MG CAPSULE.DR PO SCH ×2 (08:37→20:50)
[2018-05-03] MEDS: DOXYCYCLINE 100MG TABLET PO SCH ×2 (08:37→20:50)
[2018-05-03] MEDS: ALLOPURINOL 100 MG TABLET PO SCH (08:37)
[2018-05-03] MEDS: GUAIFENESIN ER 600 MG TABLET PO SCH ×2 (08:37→20:50)
[2018-05-03] MEDS: FLUTICASONE/VILANTEROL 200-25MCG/INH INH SCH (08:38)
[2018-05-03] MEDS: CHOLESTYRAMINE LIGHT 4GM PACKET PO SCH ×2 (08:39→20:49)
[2018-05-03] MEDS: CEFTRIAXONE 2 GM in SODIUM CHLORIDE 0.9% 50 ML IV SCH (12:55)
[2018-05-03] MEDS: methylPREDNISolone SOD SUCC 40 MG/ML IVPush SCH ×2 (12:55→20:49)
[2018-05-03 20:00] VITALS: BP 151/61
[2018-05-03] MEDS: LOVASTATIN 10 MG TABLET PO SCH (20:49)
[2018-05-03] MEDS ORDERED: DIPHENHYDRAMINE 25 MG CAPSULE PO ONE (21:00)
[2018-05-04 00:37] VITALS: BP 155/76
[2018-05-04] MEDS: HEPARIN 5,000 UNITS/ML, 1ML SQ SCH ×3 (05:10→20:57)
[2018-05-04] MEDS: methylPREDNISolone SOD SUCC 40 MG/ML IVPush SCH (05:10)
[2018-05-04 06:49] VITALS: BP 106/70
[2018-05-04] MEDS: ALBUTEROL/IPRATROPIUM 2.5MG/0.5MG, 3 ML NPPB SCH ×4 (06:50→19:10)
[2018-05-04] MEDS: INSULIN LISPRO 100 UNITS/ML, PEN SQ-INSULIN SCH ×4 (07:42→20:57)
[2018-05-04] MEDS: OMEPRAZOLE 20 MG CAPSULE.DR PO SCH ×2 (07:43→20:59)
[2018-05-04] MEDS: ALLOPURINOL 100 MG TABLET PO SCH (07:43)
[2018-05-04] MEDS: FLUTICASONE/VILANTEROL 200-25MCG/INH INH SCH (07:43)
[2018-05-04] MEDS: CHOLESTYRAMINE LIGHT 4GM PACKET PO SCH ×2 (07:43→21:58)
[2018-05-04] MEDS: FERROUS SULFATE 325 MG TABLET PO SCH (07:44)
[2018-05-04] MEDS: DOXYCYCLINE 100MG TABLET PO SCH ×2 (07:44→20:59)
[2018-05-04] MEDS: GUAIFENESIN ER 600 MG TABLET PO SCH ×2 (07:44→21:00)
[2018-05-04] MEDS: SUCRALFATE 1 GM/10 ML UDC PO SCH ×4 (07:45→20:57)
[2018-05-04] MEDS: CEFTRIAXONE 2 GM in SODIUM CHLORIDE 0.9% 50 ML IV SCH (12:34)
[2018-05-04 13:51] VITALS: BP 145/71
[2018-05-04 18:45] VITALS: BP 101/63
[2018-05-04] MEDS: LOVASTATIN 10 MG TABLET PO SCH (20:59)
[2018-05-05 01:19] VITALS: BP 127/71
[2018-05-05] MEDS: ALBUTEROL/IPRATROPIUM 2.5MG/0.5MG, 3 ML NPPB SCH ×3 (02:39→14:20)
[2018-05-05 05:08] LABS: ANION GAP 5 mmol/L (5-15); CHLORIDE 101 mmol/L (98-107)
[2018-05-05 05:09] LABS: CREATININE 1.52 mg/dL (0.55-1.02)
[2018-05-05] MEDS: HEPARIN 5,000 UNITS/ML, 1ML SQ SCH ×2 (05:48→12:47)
[2018-05-05] MEDS: INSULIN LISPRO 100 UNITS/ML, PEN SQ-INSULIN SCH ×3 (07:00→16:14)
[2018-05-05] MEDS: FLUTICASONE/VILANTEROL 200-25MCG/INH INH SCH (07:36)
[2018-05-05] MEDS: OMEPRAZOLE 20 MG CAPSULE.DR PO SCH (07:37)
[2018-05-05] MEDS: GUAIFENESIN ER 600 MG TABLET PO SCH (07:37)
[2018-05-05] MEDS: POTASSIUM CHLORIDE 20 MEQ TAB.ER.PRT PO SCH ×2 (07:37→16:08)
[2018-05-05] MEDS: SUCRALFATE 1 GM/10 ML UDC PO SCH ×3 (07:37→16:08)
[2018-05-05] MEDS: FERROUS SULFATE 325 MG TABLET PO SCH (07:37)
[2018-05-05] MEDS: CHOLESTYRAMINE LIGHT 4GM PACKET PO SCH (07:37)
[2018-05-05] MEDS: ALLOPURINOL 100 MG TABLET PO SCH (07:38)
[2018-05-05] MEDS: DOXYCYCLINE 100MG TABLET PO SCH (07:38)
[2018-05-05 07:40] VITALS: BP 102/62
[2018-05-05] MEDS ORDERED: CHOL239. PO (10:45)
[2018-05-05] MEDS ORDERED: CEFTRIAXONE PMX 2GM/50ML 50 ML IV SCH (11:30)
[2018-05-05 13:25] VITALS: BP 136/73
== END 2018-05-05 17:03 | DRG 871 ==
LOC: ED 11:14 → 4WST 11:15 → CCU 05-01 11:04 → 3NE 05-03 20:26
PROVIDERS: ADMIT Internal Medicine; ATTEND Internal Medicine
PROC: 5A09357 Assistance with Respiratory Ventilation, Less than 24 Consecutive Hours, Continuous Positive Airway Pressure (ICD-10-PCS; principal; 2018-05-01)
DX: A41.9 Sepsis, unspecified organism (principal); J15.9 Unspecified bacterial pneumonia; J96.21 Acute and chronic respiratory failure with hypoxia; E43 Unspecified severe protein-calorie malnutrition; I50.33 Acute on chronic diastolic (congestive) heart failure; N17.0 Acute kidney failure with tubular necrosis; J44.0 Chronic obstructive pulmonary disease with (acute) lower respiratory infection; E87.1 Hypo-osmolality and hyponatremia; E87.2 Acidosis; J44.1 Chronic obstructive pulmonary disease with (acute) exacerbation; Z99.81 Dependence on supplemental oxygen; E78.5 Hyperlipidemia, unspecified; I11.0 Hypertensive heart disease with heart failure; K21.9 Gastro-esophageal reflux disease without esophagitis; K29.60 Other gastritis without bleeding; T38.0X5A Adverse effect of glucocorticoids and synthetic analogues, initial encounter; R73.9 Hyperglycemia, unspecified; Z86.718 Personal history of other venous thrombosis and embolism; Z87.442 Personal history of urinary calculi; Z87.891 Personal history of nicotine dependence; Z68.35 Body mass index [BMI] 35.0-35.9, adult; R53.81 Other malaise; D50.0 Iron deficiency anemia secondary to blood loss (chronic); K31.7 Polyp of stomach and duodenum; Z79.899 Other long term (current) drug therapy; Z90.49 Acquired absence of other specified parts of digestive tract
CPT/HCPCS: 36415; 36600; 71045; 71275; 80048; 80053; 82040; 82272; 82803; 82962; 83605; 83735; 83880; 84100; 84132; 84145; 84484; 85025; 87040; 87070; 87081; 87205; 87324; 90656; 93005; 93306; 94640; 94660; 96365; 96375; 99291; C1760; G0378; J0696; J1644; J2543; J3370; J7620; Q9967; J1120; J1815; J1940; J2920; J2930; J7030; J7050; J7512; Q0163

== ENCOUNTER 2018-06-27 09:13 | Inpatient (IN) | payer MEDICARE ==
[2018-06-27] VITALS (10 sets, daily range): BP systolic 90–156; BP diastolic 47–65
[~2018-06-27] VITALS: Ht 165.1 cm; Wt 98.4 kg
[~2018-06-27 09:13] MED LIST changes: +CHOL239. PO
[2018-06-27] MEDS ORDERED: methylPREDNISolone SOD SUCC 125 MG/2 ML IVP ONE (09:30)
[2018-06-27] MEDS ORDERED: MAGNESIUM SULFATE 1 GM in SODIUM CHLORIDE 0.9% 50 ML IV ONE (09:30)
[2018-06-27] MEDS ORDERED: SODIUM CHLORIDE FLUSH 10ML SYR IVF ONE (09:30)
[2018-06-27] MEDS ORDERED: methylPREDNISolone SOD SUCC 125 MG/2 ML ONE (09:49)
[2018-06-27] MEDS ORDERED: ALBUTEROL SULFATE 2.5MG/0.5ML ONE (10:03)
[2018-06-27] MEDS ORDERED: IPRATROPIUM 0.5 MG/2.5 ML INHA ONE (10:03)
[2018-06-27 10:07] LABS: MEAN CORPUSCULAR HEMOGLOBIN 25.9 pg (27.0-34.8); MEAN CORPUSCULAR HGB CONC 31.6 g/dL (32.4-35.8); MEAN CORPUSCULAR VOLUME 81.8 fL (80-100); MEAN PLATELET VOLUME 6.8 fL (7.4-10.4); PLATELET COUNT 280 x10^3/uL (130-400); RED BLOOD COUNT 2.41 x10^6/uL (3.82-5.3); RED CELL DISTRIBUTION WIDTH 19.3 % (9.6-15.2)
[2018-06-27 10:15] LABS: ALBUMIN 2.4 g/dL (3.4-5.0); ANION GAP 1 mmol/L (5-15); CALCIUM 8.9 mg/dL (8.5-10.1); CHLORIDE 97 mmol/L (98-107)
[2018-06-27 10:19] LABS: BASOPHILS # (AUTO) 0.03 x10^3/uL (0-0.1); BASOPHILS % (AUTO) 0 % (0-1); EOSINOPHILS # (AUTO) 0.13 x10^3/uL (0-0.4); EOSINOPHILS % (AUTO) 1 % (1-7); LYMPHOCYTES # (AUTO) 1.54 x10^3/uL (1-3.4); LYMPHOCYTES % (AUTO) 17 % (22-44); MD MORPH REVIEW ONLY; MONOCYTES # (AUTO) 0.49 x10^3/uL (0.2-0.8); MONOCYTES % (AUTO) 5 % (2-9); NEUTROPHILS # (AUTO) 7.08 x10^3/uL (1.8-6.8); NEUTROPHILS % (AUTO) 77 % (42-75)
[2018-06-27 10:20] LABS: ALANINE AMINOTRANSFERASE 12 U/L (12-78); ALKALINE PHOSPHATASE 64 U/L (45-117); BILIRUBIN,TOTAL 0.3 mg/dL (0.2-1.0); CREATININE 1.21 mg/dL (0.55-1.02); TOTAL PROTEIN 7.2 g/dL (6.4-8.2); TROPONIN I < 0.015 ng/mL (0.000-0.045)
[2018-06-27 10:21] LABS: ANISOCYTOSIS 1+; HYPOCHROMIA 1+; MICROCYTOSIS 1+; POLYCHROMASIA 1+; STOMATOCYTES 1+
[2018-06-27 10:22] LABS: <PLATELET ESTIMATE> ADEQUATE; <PLT MORPHOLOGY> NORMAL PLT MORPH; BASOPHILLIC STIPPLING 1+
[2018-06-27] MEDS ORDERED: ALBUTEROL SULFATE 2.5 MG/3 ML NPPB ONE (10:30)
[2018-06-27] MEDS ORDERED: IPRATROPIUM 0.5 MG/2.5 ML INHA NPPB ONE (10:30)
[2018-06-27] MEDS ORDERED: CEFTRIAXONE PMX 1GM/50ML 50 ML IV ONE (12:00)
[2018-06-27] MEDS ORDERED: LABETALOL 5MG/ML, 20ML IVPush PRN (14:30)
[2018-06-27] MEDS: ALBUTEROL/IPRATROPIUM 2.5MG/0.5MG, 3 ML NPPB SCH ×2 (14:30→20:30)
[2018-06-27] MEDS ORDERED: SODIUM CHLORIDE 0.9% 1,000 ML IV SCH (14:30)
[2018-06-27] MEDS ORDERED: GUAIFENESIN/DM 200-20MG, 10ML UDC PO PRN (14:30)
[2018-06-27] MEDS ORDERED: DOCUSATE 100 MG CAPSULE PO PRN (14:30)
[2018-06-27] MEDS ORDERED: POLYETHYLENE GLYCOL 17 GM PACKET PO PRN (14:30)
[2018-06-27] MEDS ORDERED: ONDANSETRON ODT 4 MG PO PRN (14:30)
[2018-06-27] MEDS ORDERED: ACETAMINOPHEN 325 MG TABLET PO PRN (14:30)
[2018-06-27] MEDS ORDERED: hydrALAzine 20 MG/ML, 1ML IVPush PRN (14:30)
[2018-06-27] MEDS ORDERED: BISACODYL 10 MG SUPP PR PRN (14:30)
[2018-06-27] MEDS ORDERED: ONDANSETRON 2MG/ML, 2ML IVPush PRN (14:30)
[2018-06-27] MEDS ORDERED: ALBUTEROL SULFATE 2.5 MG/3 ML NPPB SCH (15:30)
[2018-06-27] MEDS: CHOLESTYRAMINE LIGHT 4GM PACKET PO SCH ×2 (16:48→22:31)
[2018-06-27] MEDS: methylPREDNISolone SOD SUCC 125 MG/2 ML IVPush SCH ×2 (16:48→22:30)
[2018-06-27] MEDS: SUCRALFATE 1 GM TABLET PO SCH ×2 (16:48→22:30)
[2018-06-27] MEDS: OMEPRAZOLE 20 MG CAPSULE.DR PO SCH (16:50)
[2018-06-27] MEDS: CEFTRIAXONE PMX 1GM/50ML 50 ML IV SCH (17:20)
[2018-06-27] MEDS: AZITHROMYCIN 500 MG in SODIUM CHLORIDE 0.9% 250 ML IV SCH (17:56)
[2018-06-27 19:57] LABS: OCCULT BLOOD POSITIVE (NEGATIVE)
[2018-06-27] MEDS: BUDESONIDE 0.5 MG/2 ML INHA HHN SCH (20:48)
[2018-06-27] MEDS: LOVASTATIN 10 MG TABLET PO SCH (22:30)
[2018-06-28 01:10] VITALS: BP 113/63
[2018-06-28] MEDS: ALBUTEROL/IPRATROPIUM 2.5MG/0.5MG, 3 ML NPPB SCH ×5 (02:30→19:46)
[2018-06-28] MEDS: methylPREDNISolone SOD SUCC 125 MG/2 ML IVPush SCH ×4 (04:53→22:02)
[2018-06-28 05:01] LABS: OCCULT BLOOD POSITIVE (NEGATIVE)
[2018-06-28 05:18] LABS: BASOPHILS # (AUTO) 0.01 x10^3/uL (0-0.1); BASOPHILS % (AUTO) 0 % (0-1); EOSINOPHILS # (AUTO) 0.02 x10^3/uL (0-0.4); EOSINOPHILS % (AUTO) 0 % (1-7); LYMPHOCYTES # (AUTO) 0.55 x10^3/uL (1-3.4); LYMPHOCYTES % (AUTO) 4 % (22-44); MD NO; MEAN CORPUSCULAR HEMOGLOBIN 27.2 pg (27.0-34.8); MEAN CORPUSCULAR HGB CONC 32.9 g/dL (32.4-35.8); MEAN CORPUSCULAR VOLUME 82.8 fL (80-100); MEAN PLATELET VOLUME 7.1 fL (7.4-10.4); MONOCYTES # (AUTO) 0.13 x10^3/uL (0.2-0.8); MONOCYTES % (AUTO) 1 % (2-9); NEUTROPHILS # (AUTO) 11.93 x10^3/uL (1.8-6.8); NEUTROPHILS % (AUTO) 94 % (42-75); PLATELET COUNT 321 x10^3/uL (130-400); RED BLOOD COUNT 3.41 x10^6/uL (3.82-5.3); RED CELL DISTRIBUTION WIDTH 18.6 % (9.6-15.2)
[2018-06-28 05:21] LABS: ANION GAP 8 mmol/L (5-15); CHLORIDE 95 mmol/L (98-107); CREATININE 1.04 mg/dL (0.55-1.02)
[2018-06-28 06:29] VITALS: BP 117/74
[2018-06-28] MEDS: CHOLESTYRAMINE LIGHT 4GM PACKET PO SCH ×2 (08:02→21:14)
[2018-06-28] MEDS: SUCRALFATE 1 GM TABLET PO SCH ×5 (08:02→21:14)
[2018-06-28] MEDS: OMEPRAZOLE 20 MG CAPSULE.DR PO SCH ×2 (08:02→16:46)
[2018-06-28] MEDS: ALLOPURINOL 100 MG TABLET PO SCH (08:02)
[2018-06-28] MEDS: FERROUS SULFATE 325 MG TABLET PO SCH (08:02)
[2018-06-28] MEDS: BUDESONIDE 0.5 MG/2 ML INHA HHN SCH ×2 (08:50→19:46)
[2018-06-28] MEDS ORDERED: ALBUTEROL/IPRATROPIUM 2.5MG/0.5MG, 3 ML NPPB SCH (09:00)
[2018-06-28 12:17] VITALS: BP 99/65
[2018-06-28] MEDS ORDERED: LEVO25TA4 PO (14:53)
[2018-06-28 16:13] LABS: OCCULT BLOOD POSITIVE (NEGATIVE)
[2018-06-28] MEDS: CEFTRIAXONE PMX 1GM/50ML 50 ML IV SCH (16:46)
[2018-06-28] MEDS: AZITHROMYCIN 500 MG in SODIUM CHLORIDE 0.9% 250 ML IV SCH (18:12)
[2018-06-28 19:02] VITALS: BP 105/71
[2018-06-28] MEDS: LOVASTATIN 10 MG TABLET PO SCH (21:14)
[2018-06-29 01:24] VITALS: BP 111/71
[2018-06-29] MEDS: ALBUTEROL/IPRATROPIUM 2.5MG/0.5MG, 3 ML NPPB SCH ×4 (02:30→20:48)
[2018-06-29] MEDS: methylPREDNISolone SOD SUCC 125 MG/2 ML IVPush SCH ×4 (03:54→21:20)
[2018-06-29] MEDS: LEVOTHYROXINE 25 MCG TABLET PO SCH (05:37)
[2018-06-29 06:06] LABS: BASOPHILS # (AUTO) 0.02 x10^3/uL (0-0.1); BASOPHILS % (AUTO) 0 % (0-1); EOSINOPHILS # (AUTO) 0.01 x10^3/uL (0-0.4); EOSINOPHILS % (AUTO) 0 % (1-7); LYMPHOCYTES # (AUTO) 0.65 x10^3/uL (1-3.4); LYMPHOCYTES % (AUTO) 5 % (22-44); MD NO; MEAN CORPUSCULAR HEMOGLOBIN 26.7 pg (27.0-34.8); MEAN CORPUSCULAR HGB CONC 32.4 g/dL (32.4-35.8); MEAN CORPUSCULAR VOLUME 82.6 fL (80-100); MEAN PLATELET VOLUME 6.7 fL (7.4-10.4); MONOCYTES # (AUTO) 0.16 x10^3/uL (0.2-0.8); MONOCYTES % (AUTO) 1 % (2-9); NEUTROPHILS # (AUTO) 12.04 x10^3/uL (1.8-6.8); NEUTROPHILS % (AUTO) 94 % (42-75); PLATELET COUNT 303 x10^3/uL (130-400); RED BLOOD COUNT 3.44 x10^6/uL (3.82-5.3)
[2018-06-29 06:15] LABS: ANION GAP 5 mmol/L (5-15); CALCIUM 8.9 mg/dL (8.5-10.1); CHLORIDE 93 mmol/L (98-107)
[2018-06-29 06:42] VITALS: BP 103/68
[2018-06-29] MEDS: SUCRALFATE 1 GM TABLET PO SCH ×4 (07:33→20:06)
[2018-06-29] MEDS: OMEPRAZOLE 20 MG CAPSULE.DR PO SCH ×2 (07:33→17:42)
[2018-06-29] MEDS: ALLOPURINOL 100 MG TABLET PO SCH (08:13)
[2018-06-29] MEDS: FERROUS SULFATE 325 MG TABLET PO SCH (08:13)
[2018-06-29] MEDS: CHOLESTYRAMINE LIGHT 4GM PACKET PO SCH ×2 (08:13→21:20)
[2018-06-29] MEDS: BUDESONIDE 0.5 MG/2 ML INHA HHN SCH ×2 (10:05→20:48)
[2018-06-29 12:35] VITALS: BP 101/67
[2018-06-29] MEDS: CEFTRIAXONE PMX 1GM/50ML 50 ML IV SCH (17:45)
[2018-06-29] MEDS: AZITHROMYCIN 500 MG in SODIUM CHLORIDE 0.9% 250 ML IV SCH (18:22)
[2018-06-29 18:51] VITALS: BP 128/70
[2018-06-29] MEDS: LOVASTATIN 10 MG TABLET PO SCH (20:06)
[2018-06-30] MEDS: ALBUTEROL/IPRATROPIUM 2.5MG/0.5MG, 3 ML NPPB SCH ×4 (02:16→18:59)
[2018-06-30 03:11] VITALS: BP 104/71
[2018-06-30] MEDS: methylPREDNISolone SOD SUCC 125 MG/2 ML IVPush SCH ×2 (05:08→20:44)
[2018-06-30] MEDS: LEVOTHYROXINE 25 MCG TABLET PO SCH (05:09)
[2018-06-30 06:07] LABS: BASOPHILS % (AUTO) 0 % (0-1); EOSINOPHILS % (AUTO) 0 % (1-7); LYMPHOCYTES # (AUTO) 0.65 x10^3/uL (1-3.4); LYMPHOCYTES % (AUTO) 6 % (22-44); MD NO; MEAN CORPUSCULAR HEMOGLOBIN 27.2 pg (27.0-34.8); MEAN CORPUSCULAR HGB CONC 32.9 g/dL (32.4-35.8); MEAN CORPUSCULAR VOLUME 82.7 fL (80-100); MEAN PLATELET VOLUME 6.8 fL (7.4-10.4); MONOCYTES # (AUTO) 0.23 x10^3/uL (0.2-0.8); MONOCYTES % (AUTO) 2 % (2-9); NEUTROPHILS # (AUTO) 9.47 x10^3/uL (1.8-6.8); NEUTROPHILS % (AUTO) 92 % (42-75); PLATELET COUNT 275 x10^3/uL (130-400); RED BLOOD COUNT 3.25 x10^6/uL (3.82-5.3)
[2018-06-30 06:16] LABS: ANION GAP 5 mmol/L (5-15); CALCIUM 8.3 mg/dL (8.5-10.1); CHLORIDE 95 mmol/L (98-107); CREATININE 1.15 mg/dL (0.55-1.02)
[2018-06-30 06:34] VITALS: BP 147/77
[2018-06-30] MEDS: SUCRALFATE 1 GM TABLET PO SCH ×4 (07:06→20:44)
[2018-06-30] MEDS: OMEPRAZOLE 20 MG CAPSULE.DR PO SCH ×2 (07:06→17:18)
[2018-06-30] MEDS: BUDESONIDE 0.5 MG/2 ML INHA HHN SCH ×2 (07:15→21:00)
[2018-06-30] MEDS: FERROUS SULFATE 325 MG TABLET PO SCH (09:38)
[2018-06-30] MEDS: ALLOPURINOL 100 MG TABLET PO SCH (09:38)
[2018-06-30] MEDS: CHOLESTYRAMINE LIGHT 4GM PACKET PO SCH ×2 (09:38→21:45)
[2018-06-30] MEDS ORDERED: GOLYTELY 4,000ML ORAL.SOL PO ONE (10:00)
[2018-06-30 12:33] VITALS: BP 107/73
[2018-06-30] MEDS: GUAIFENESIN/DM 200-20MG, 10ML UDC PO SCH ×2 (15:20→20:44)
[2018-06-30] MEDS: CEFTRIAXONE PMX 1GM/50ML 50 ML IV SCH (17:19)
[2018-06-30] MEDS: AZITHROMYCIN 500 MG in SODIUM CHLORIDE 0.9% 250 ML IV SCH (18:07)
[2018-06-30 20:35] VITALS: BP 105/72
[2018-06-30] MEDS: LOVASTATIN 10 MG TABLET PO SCH (20:44)
[2018-07-01 02:04] VITALS: BP 101/68
[2018-07-01] MEDS: ALBUTEROL/IPRATROPIUM 2.5MG/0.5MG, 3 ML NPPB SCH ×4 (02:30→20:30)
[2018-07-01] MEDS: GUAIFENESIN/DM 200-20MG, 10ML UDC PO SCH ×4 (02:52→20:49)
[2018-07-01] MEDS: methylPREDNISolone SOD SUCC 125 MG/2 ML IVPush SCH ×2 (02:52→12:15)
[2018-07-01] MEDS: LEVOTHYROXINE 25 MCG TABLET PO SCH (05:15)
[2018-07-01 05:58] LABS: BASOPHILS % (AUTO) 0 % (0-1); EOSINOPHILS % (AUTO) 0 % (1-7); LYMPHOCYTES # (AUTO) 0.54 x10^3/uL (1-3.4); LYMPHOCYTES % (AUTO) 6 % (22-44); MD NO; MEAN CORPUSCULAR HEMOGLOBIN 26.6 pg (27.0-34.8); MEAN CORPUSCULAR HGB CONC 32.2 g/dL (32.4-35.8); MEAN CORPUSCULAR VOLUME 82.4 fL (80-100); MEAN PLATELET VOLUME 6.8 fL (7.4-10.4); MONOCYTES # (AUTO) 0.24 x10^3/uL (0.2-0.8); MONOCYTES % (AUTO) 3 % (2-9); NEUTROPHILS # (AUTO) 8.53 x10^3/uL (1.8-6.8); NEUTROPHILS % (AUTO) 92 % (42-75); PLATELET COUNT 267 x10^3/uL (130-400); RED BLOOD COUNT 3.61 x10^6/uL (3.82-5.3); RED CELL DISTRIBUTION WIDTH 18.2 % (9.6-15.2)
[2018-07-01 06:19] LABS: ANION GAP 6 mmol/L (5-15); CALCIUM 8.2 mg/dL (8.5-10.1); CHLORIDE 94 mmol/L (98-107)
[2018-07-01 06:22] LABS: CREATININE 0.91 mg/dL (0.55-1.02)
[2018-07-01] MEDS: BUDESONIDE 0.5 MG/2 ML INHA HHN SCH ×2 (06:26→20:30)
[2018-07-01] MEDS: OMEPRAZOLE 20 MG CAPSULE.DR PO SCH ×2 (07:11→16:06)
[2018-07-01] MEDS: SUCRALFATE 1 GM TABLET PO SCH ×4 (07:11→20:49)
[2018-07-01] MEDS ORDERED: GABAPENTIN 300 MG CAPSULE PO ONE (08:00)
[2018-07-01] MEDS ORDERED: OXYcodone IR 5MG TABLET PO ONE (08:00)
[2018-07-01] MEDS ORDERED: ACETAMINOPHEN 500 MG TABLET PO ONE (08:00)
[2018-07-01] MEDS ORDERED: DIAZEPAM 5 MG TABLET PO ONE (08:00)
[2018-07-01 08:21] VITALS: BP 94/46
[2018-07-01] MEDS: ALLOPURINOL 100 MG TABLET PO SCH (08:33)
[2018-07-01] MEDS: CHOLESTYRAMINE LIGHT 4GM PACKET PO SCH ×2 (08:33→20:49)
[2018-07-01] MEDS: FERROUS SULFATE 325 MG TABLET PO SCH (08:33)
[2018-07-01] MEDS ORDERED: PROPOFOL 10 MG/ML, 50ML ONE (09:02)
[2018-07-01] MEDS ORDERED: ONDANSETRON ODT 8 MG PO PRN (10:00)
[2018-07-01] MEDS ORDERED: EPHEDRINE 50 MG/ML, 1ML IVPush PRN (10:00)
[2018-07-01] MEDS ORDERED: EPHEDRINE 50 MG/ML, 1ML IM PRN (10:00)
[2018-07-01] MEDS ORDERED: FENTANYL PF 100 MCG/2ML IV PRN (10:00)
[2018-07-01] MEDS ORDERED: ALBUTEROL/IPRATROPIUM 2.5MG/0.5MG, 3 ML NPPB PRN (10:00)
[2018-07-01 13:52] VITALS: BP 118/59
[2018-07-01] MEDS: CEFTRIAXONE PMX 1GM/50ML 50 ML IV SCH (17:11)
[2018-07-01] MEDS: AZITHROMYCIN 500 MG in SODIUM CHLORIDE 0.9% 250 ML IV SCH (17:55)
[2018-07-01 19:06] VITALS: BP 144/66
[2018-07-01] MEDS: LOVASTATIN 10 MG TABLET PO SCH (20:49)
[2018-07-02 01:44] VITALS: BP 156/82
[2018-07-02] MEDS: ALBUTEROL/IPRATROPIUM 2.5MG/0.5MG, 3 ML NPPB SCH ×3 (02:06→06:45)
[2018-07-02] MEDS: GUAIFENESIN/DM 200-20MG, 10ML UDC PO SCH ×2 (02:07→08:51)
[2018-07-02] MEDS: SUCRALFATE 1 GM TABLET PO SCH ×2 (06:00→11:10)
[2018-07-02] MEDS: LEVOTHYROXINE 25 MCG TABLET PO SCH (06:01)
[2018-07-02] MEDS: BUDESONIDE 0.5 MG/2 ML INHA HHN SCH (06:46)
[2018-07-02 07:46] VITALS: BP 151/84
[2018-07-02] MEDS: FERROUS SULFATE 325 MG TABLET PO SCH (08:47)
[2018-07-02] MEDS: OMEPRAZOLE 20 MG CAPSULE.DR PO SCH (08:47)
[2018-07-02] MEDS: ALLOPURINOL 100 MG TABLET PO SCH (08:48)
[2018-07-02] MEDS: CHOLESTYRAMINE LIGHT 4GM PACKET PO SCH (08:48)
[2018-07-02] MEDS ORDERED: METH4TAB2 PO (09:46)
[2018-07-02] MEDS ORDERED: OMEP-110 PO (09:46)
== END 2018-07-02 13:40 | disposition home health service (06) | DRG 871 ==
LOC: ED 09:42 → EDIP 11:37 → 4WST 12:19 → DCLOUNGE 07-02 13:23
PROVIDERS: ADMIT Hospitalist; ATTEND Hospitalist
PROC: 30233N1 Transfusion of Nonautologous Red Blood Cells into Peripheral Vein, Percutaneous Approach (ICD-10-PCS; 2018-06-27)
PROC: 0DJD8ZZ Inspection of Lower Intestinal Tract, Via Natural or Artificial Opening Endoscopic (ICD-10-PCS; 2018-07-01)
PROC: 0W3P8ZZ Control Bleeding in Gastrointestinal Tract, Via Natural or Artificial Opening Endoscopic (ICD-10-PCS; principal; 2018-07-01 09:00)
DX: A41.9 Sepsis, unspecified organism (principal); J18.9 Pneumonia, unspecified organism; J96.21 Acute and chronic respiratory failure with hypoxia; E43 Unspecified severe protein-calorie malnutrition; K31.811 Angiodysplasia of stomach and duodenum with bleeding; K57.31 Diverticulosis of large intestine without perforation or abscess with bleeding; J44.1 Chronic obstructive pulmonary disease with (acute) exacerbation; E87.1 Hypo-osmolality and hyponatremia; J44.0 Chronic obstructive pulmonary disease with (acute) lower respiratory infection; J81.1 Chronic pulmonary edema; D64.9 Anemia, unspecified; K31.7 Polyp of stomach and duodenum; K44.9 Diaphragmatic hernia without obstruction or gangrene; E78.5 Hyperlipidemia, unspecified; N18.3 Chronic kidney disease, stage 3 (moderate); I12.9 Hypertensive chronic kidney disease with stage 1 through stage 4 chronic kidney disease, or unspecified chronic kidney disease; M10.9 Gout, unspecified; K64.8 Other hemorrhoids; K21.0 Gastro-esophageal reflux disease with esophagitis; K64.4 Residual hemorrhoidal skin tags; Z99.81 Dependence on supplemental oxygen; Z87.442 Personal history of urinary calculi; Z87.01 Personal history of pneumonia (recurrent); Z86.718 Personal history of other venous thrombosis and embolism; Z86.010 Personal history of colon polyps; Z87.19 Personal history of other diseases of the digestive system; Z87.891 Personal history of nicotine dependence
CPT/HCPCS: 36415; 36430; 71045; 80048; 80053; 82272; 83605; 83880; 84145; 84484; 85014; 85018; 85025; 86850; 86870; 86900; 86902; 86922; 86923; 87040; 93005; 94640; 94644; 96374; 96375; 99291; G0378; J0456; J0696; J2704; J3475; J7613; J7620; J7626; J7644; J2930; J7030; J7050; J7512; P9016

== ENCOUNTER 2018-07-19 16:42 | Inpatient (IN) | payer MEDICARE ==
[~2018-07-19] VITALS: Ht 166.4 cm; Wt 84.0 kg
[~2018-07-19 16:42] MED LIST changes: +LEVO25TA4 PO; +METH4TAB2 PO
[2018-07-19] MEDS ORDERED: SODIUM CHLORIDE FLUSH 10ML SYR IVF ONE (17:00)
--- NOTE | 2018-07-19 17:03 | NUR ---
PATIENT BIB [facility] FOR SOB AND COUGH X 2 WEEKS, WORSENING PAST DAY. PATIENT DC'D 2 WEEKS AGO FROM [facility] FOR PNEUMONIA, FINISHED ALL ABX AND REPORTS NO IMPROVEMENT. PATIENT ON 4L HOME 02, HX HTN, COPD. SKIN PALE, DR, WARM. ALBUTEROL TREATMENT EN ROUTE PER EMS. 94% 6L OXYMASK AT THIS TIME, XRAY AT BEDSIDE. 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 CALL LIGHT WITHIN REACH.
[2018-07-19] MEDS ORDERED: ALBUTEROL/IPRATROPIUM 2.5MG/0.5MG, 3 ML ONE (17:13)
[2018-07-19] MEDS ORDERED: ALBUTEROL/IPRATROPIUM 2.5MG/0.5MG, 3 ML NEB ONE (17:15)
--- NOTE | 2018-07-19 17:19 | NUR ---
RT AND LAB AT BEDSIDE.
[2018-07-19 17:36] LABS: BASOPHILS % (AUTO) 0 % (0-1); EOSINOPHILS # (AUTO) 0.19 x10^3/uL (0-0.4); EOSINOPHILS % (AUTO) 3 % (1-7); LYMPHOCYTES # (AUTO) 0.61 x10^3/uL (1-3.4); LYMPHOCYTES % (AUTO) 9 % (22-44); MD NO; MEAN CORPUSCULAR HEMOGLOBIN 25.9 pg (27.0-34.8); MEAN CORPUSCULAR HGB CONC 31.3 g/dL (32.4-35.8); MEAN CORPUSCULAR VOLUME 82.6 fL (80-100); MEAN PLATELET VOLUME 6.7 fL (7.4-10.4); MONOCYTES # (AUTO) 0.63 x10^3/uL (0.2-0.8); MONOCYTES % (AUTO) 10 % (2-9); NEUTROPHILS # (AUTO) 5.22 x10^3/uL (1.8-6.8); NEUTROPHILS % (AUTO) 79 % (42-75); PLATELET COUNT 330 x10^3/uL (130-400); RED BLOOD COUNT 3.09 x10^6/uL (3.82-5.3); RED CELL DISTRIBUTION WIDTH 18.5 % (9.6-15.2)
[2018-07-19] MEDS ORDERED: ASCO100T5 PO (17:38)
[2018-07-19] MEDS ORDERED: FLUT1BLS INH (17:39)
[2018-07-19 17:41] LABS: INTERNATIONAL NORMALIZED RATIO 1.06 (0.93-1.1); PROTHROMBIN TIME 11.2 Seconds (9.6-11.5)
--- NOTE | 2018-07-19 17:42 | NUR ---
Note eve in EDM - 07/19/18 at 1743 by CELINA MD AT BEDSIDE, 2ND IVF BOLUS ADMINISTERED PER MD ORDER. VS UPDATED IN CHART, PATIENT RESTING COMFORTABLY ON GURNEY, A+[id number]. NAD NOTED.
--- NOTE | 2018-07-19 17:43 | NUR ---
WRONG PATIENT CHARTING ABOVE.
[2018-07-19 17:44] LABS: ALANINE AMINOTRANSFERASE 14 U/L (12-78); ALBUMIN 1.8 g/dL (3.4-5.0); ANION GAP 4 mmol/L (5-15); CALCIUM 8.7 mg/dL (8.5-10.1); CHLORIDE 97 mmol/L (98-107); CREATININE 1.05 mg/dL (0.55-1.02)
[2018-07-19 17:48] LABS: ALKALINE PHOSPHATASE 78 U/L (45-117); BILIRUBIN,TOTAL 0.2 mg/dL (0.2-1.0); TOTAL PROTEIN 6.4 g/dL (6.4-8.2); TROPONIN I < 0.015 ng/mL (0.000-0.045)
[2018-07-19] MEDS ORDERED: PIPERACILLIN/TAZO/PMX 3.375GM 50 ML ONE (18:05)
--- NOTE | 2018-07-19 18:11 | NUR ---
BLOOD CULURES DRAWN X 2 PIOR TO ABX, ABX ADMINISTERED PER ORDER. AWAITING ADMIT ORDER, AWARE.
[2018-07-19] MEDS ORDERED: PIPERACILLIN/TAZO/PMX 3.375GM 50 ML IVPB ONE (18:30)
--- NOTE | 2018-07-19 18:47 | NUR ---
REPORT TO [facility].
--- NOTE | 2018-07-19 18:53 | NUR ---
[facility] AT BEDSIDE.
[2018-07-19] MEDS ORDERED: SODIUM CHLORIDE 0.9% 1,000 ML IV SCH (19:06)
--- NOTE | 2018-07-19 19:06 | NUR ---
PATIENT ADMITTED/TRANSFERRED TO HOSPITAL BED UPSTAIRS.
[2018-07-19 19:28] VITALS: BP 126/67
[2018-07-19] MEDS ORDERED: hydrALAzine 20 MG/ML, 1ML IVPush PRN (19:30)
[2018-07-19] MEDS ORDERED: ALBUTEROL/IPRATROPIUM 2.5MG/0.5MG, 3 ML NPPB PRN (19:30)
[2018-07-19] MEDS ORDERED: VANCOMYCIN 0 MG in SODIUM CHLORIDE 0.9% 100 ML IV SCH (19:30)
[2018-07-19] MEDS ORDERED: DOCUSATE 100 MG CAPSULE PO PRN (19:30)
[2018-07-19] MEDS ORDERED: VANCOMYCIN PER PHARMACY MC PRN (19:30)
[2018-07-19] MEDS ORDERED: POLYETHYLENE GLYCOL 17 GM PACKET PO PRN (19:30)
[2018-07-19] MEDS ORDERED: BISACODYL 10 MG SUPP PR PRN (19:30)
[2018-07-19] MEDS ORDERED: LABETALOL 5MG/ML, 20ML IVPush PRN (19:30)
[2018-07-19 19:45] LABS: FREE T4 (FREE THYROXINE) 1.03 ng/dL (0.76-1.46); THYROID STIMULATING HORMONE 3.21 mIU/L (0.358-3.740)
[2018-07-19] MEDS ORDERED: PHARMACOKINETIC CONSULTATION MC ONE (20:30)
[2018-07-19] MEDS ORDERED: PHARMACOKINETIC MONITORING MC PRN (20:30)
[2018-07-19] MEDS ORDERED: ALBUTEROL SULFATE 2.5MG/0.5ML NPPB SCH (21:00)
[2018-07-19] MEDS: GUAIFENESIN ER 600 MG TABLET PO SCH (21:50)
[2018-07-19] MEDS: CHOLESTYRAMINE LIGHT 4GM PACKET PO SCH (21:50)
[2018-07-19] MEDS: OMEPRAZOLE 20 MG CAPSULE.DR PO SCH (21:50)
[2018-07-19] MEDS: VANCOMYCIN 1,600 MG in SODIUM CHLORIDE 0.9% 250 ML IV SCH (21:50)
[2018-07-19] MEDS: HEPARIN 5,000 UNITS/ML, 1ML SQ SCH (21:51)
[2018-07-19] MEDS: ACETAMINOPHEN 325 MG TABLET PO PRN (21:55)
[2018-07-19] MEDS: LOVASTATIN 10 MG TABLET PO SCH (22:06)
[2018-07-19] MEDS: ALBUTEROL/IPRATROPIUM 2.5MG/0.5MG, 3 ML NPPB SCH (22:15)
[2018-07-19] MEDS: BUDESONIDE 0.5 MG/2 ML INHA NPPB SCH (22:15)
[2018-07-19 22:38] LABS: CULTURE INDICATED? YES; MICROSCOPIC INDICATED
[2018-07-20] MEDS: PIPERACILLIN/TAZO/PMX 3.375GM 50 ML IV SCH ×4 (00:44→18:30)
[2018-07-20 01:18] VITALS: BP 136/66
[2018-07-20] MEDS: HEPARIN 5,000 UNITS/ML, 1ML SQ SCH ×3 (06:13→21:34)
[2018-07-20] MEDS: LEVOTHYROXINE 25 MCG TABLET PO SCH (06:13)
[2018-07-20 06:14] LABS: BASOPHILS # (AUTO) 0.02 x10^3/uL (0-0.1); BASOPHILS % (AUTO) 0 % (0-1); EOSINOPHILS # (AUTO) 0.22 x10^3/uL (0-0.4); EOSINOPHILS % (AUTO) 3 % (1-7); LYMPHOCYTES # (AUTO) 0.68 x10^3/uL (1-3.4); LYMPHOCYTES % (AUTO) 10 % (22-44); MD NO; MEAN CORPUSCULAR HEMOGLOBIN 25.7 pg (27.0-34.8); MEAN CORPUSCULAR HGB CONC 31.5 g/dL (32.4-35.8); MEAN CORPUSCULAR VOLUME 81.6 fL (80-100); MEAN PLATELET VOLUME 6.1 fL (7.4-10.4); MONOCYTES # (AUTO) 0.71 x10^3/uL (0.2-0.8); MONOCYTES % (AUTO) 10 % (2-9); NEUTROPHILS # (AUTO) 5.33 x10^3/uL (1.8-6.8); NEUTROPHILS % (AUTO) 77 % (42-75); PLATELET COUNT 345 x10^3/uL (130-400); RED BLOOD COUNT 3.26 x10^6/uL (3.82-5.3); RED CELL DISTRIBUTION WIDTH 18.5 % (9.6-15.2)
[2018-07-20] MEDS: BUDESONIDE 0.5 MG/2 ML INHA NPPB SCH ×2 (06:20→18:44)
[2018-07-20] MEDS: ALBUTEROL/IPRATROPIUM 2.5MG/0.5MG, 3 ML NPPB SCH ×4 (06:20→18:44)
[2018-07-20 06:26] LABS: ALBUMIN 1.9 g/dL (3.4-5.0); ANION GAP 3 mmol/L (5-15); CALCIUM 9.2 mg/dL (8.5-10.1); CHLORIDE 96 mmol/L (98-107)
[2018-07-20 06:31] LABS: ALANINE AMINOTRANSFERASE 11 U/L (12-78); ALKALINE PHOSPHATASE 73 U/L (45-117); BILIRUBIN,TOTAL 0.3 mg/dL (0.2-1.0); CHOL/HDL RATIO 2.4; CHOLESTEROL, TOTAL 123 mg/dL (140-239); CREATININE 1.01 mg/dL (0.55-1.02); HDL CHOL % 41 % (28-40); HDL CHOLESTEROL (DIRECT) 51 mg/dL (40-60); LDL CHOLESTEROL,CALCULATED 49 mg/dL (54-169); TOTAL PROTEIN 6.7 g/dL (6.4-8.2); TRIGLYCERIDES 113 mg/dL (50-200); VLDL CHOLESTEROL 23 mg/dL (0-25)
[2018-07-20 06:52] VITALS: BP 153/67
[2018-07-20] MEDS: CHOLESTYRAMINE LIGHT 4GM PACKET PO SCH ×2 (08:16→21:35)
[2018-07-20] MEDS: GUAIFENESIN ER 600 MG TABLET PO SCH ×2 (08:16→21:35)
[2018-07-20] MEDS: FERROUS SULFATE 325 MG TABLET PO SCH (08:16)
[2018-07-20] MEDS: ALLOPURINOL 100 MG TABLET PO SCH (08:16)
[2018-07-20] MEDS: CALCIUM/VITAMIN D3 250-125 TABLET PO SCH (08:16)
[2018-07-20] MEDS: ASCORBIC ACID 500 MG TABLET PO SCH (08:16)
[2018-07-20] MEDS: CHOLECALCIFEROL 1,000 UNIT TABLET PO SCH (08:16)
[2018-07-20] MEDS: OMEPRAZOLE 20 MG CAPSULE.DR PO SCH ×2 (08:17→21:35)
[2018-07-20] MEDS ORDERED: MAGNESIUM SULFATE PMX 2GM/50ML 50 ML IV ONE (08:30)
[2018-07-20] MEDS ORDERED: FLUTICASONE/VILANTEROL 200-25MCG/INH INH SCH (09:00)
[2018-07-20] MEDS ORDERED: OMNIPAQUE 350 MG/ML, 100ML BOTTLE ONE (09:16)
[2018-07-20] MEDS: MAGNESIUM CHLORIDE 64 MG TABLET.DR PO SCH ×2 (09:33→21:35)
[2018-07-20 13:04] LABS: HEMOGLOBIN A1C 4.7 % (4.2-6.3)
[2018-07-20 14:06] VITALS: BP 131/50
[2018-07-20 19:03] VITALS: BP 125/53
[2018-07-20] MEDS: VANCOMYCIN 1,600 MG in SODIUM CHLORIDE 0.9% 250 ML IV SCH (21:35)
[2018-07-20] MEDS: LOVASTATIN 10 MG TABLET PO SCH (21:35)
[2018-07-20 23:51] VITALS: BP 128/71
[2018-07-21] MEDS: PIPERACILLIN/TAZO/PMX 3.375GM 50 ML IV SCH ×4 (00:25→17:53)
[2018-07-21 02:02] VITALS: BP 149/69
[2018-07-21] MEDS: ACETAMINOPHEN 325 MG TABLET PO PRN ×2 (03:03→14:19)
[2018-07-21] MEDS: PROPOFOL 100 ML IV PRN ×5 (04:00→23:26)
[2018-07-21] MEDS ORDERED: NOREPINEPHRINE 1 MG/ML, 4ML ONE (04:00)
[2018-07-21] MEDS ORDERED: SODIUM CHLORIDE 0.9% 1,000ML IVBOLUS ONE (04:00)
[2018-07-21] MEDS: NOREPINEPHRINE 4 MG in SODIUM CHLORIDE 0.9% 246 ML IV PRN ×3 (04:15→21:18)
[2018-07-21] MEDS: FAMOTIDINE 20 MG/2 ML IV SCH ×3 (05:31→21:17)
[2018-07-21] MEDS: HEPARIN 5,000 UNITS/ML, 1ML SQ SCH ×4 (05:35→21:36)
[2018-07-21 06:06] LABS: BASOPHILS % (AUTO) 0 % (0-1); EOSINOPHILS # (AUTO) 0.12 x10^3/uL (0-0.4); EOSINOPHILS % (AUTO) 2 % (1-7); LYMPHOCYTES # (AUTO) 0.45 x10^3/uL (1-3.4); LYMPHOCYTES % (AUTO) 6 % (22-44); MD NO; MEAN CORPUSCULAR HGB CONC 31.2 g/dL (32.4-35.8); MEAN CORPUSCULAR VOLUME 83.4 fL (80-100); MEAN PLATELET VOLUME 6.5 fL (7.4-10.4); MONOCYTES # (AUTO) 0.74 x10^3/uL (0.2-0.8); MONOCYTES % (AUTO) 10 % (2-9); NEUTROPHILS # (AUTO) 6.49 x10^3/uL (1.8-6.8); NEUTROPHILS % (AUTO) 83 % (42-75); PLATELET COUNT 416 x10^3/uL (130-400); RED BLOOD COUNT 2.76 x10^6/uL (3.82-5.3); RED CELL DISTRIBUTION WIDTH 18.6 % (9.6-15.2)
[2018-07-21] MEDS: ALBUTEROL/IPRATROPIUM 2.5MG/0.5MG, 3 ML NPPB SCH ×4 (06:15→18:25)
[2018-07-21] MEDS: BUDESONIDE 0.5 MG/2 ML INHA NPPB SCH ×2 (06:15→18:25)
[2018-07-21 06:46] LABS: ALANINE AMINOTRANSFERASE 10 U/L (12-78); ALBUMIN 1.7 g/dL (3.4-5.0); ANION GAP 5 mmol/L (5-15); CALCIUM 8.3 mg/dL (8.5-10.1); CHLORIDE 100 mmol/L (98-107); CREATININE 1.14 mg/dL (0.55-1.02)
[2018-07-21 06:49] LABS: ALKALINE PHOSPHATASE 60 U/L (45-117); BILIRUBIN,TOTAL 0.2 mg/dL (0.2-1.0); TOTAL PROTEIN 6.3 g/dL (6.4-8.2)
[2018-07-21 08:47] LABS: CULTURE INDICATED? YES; MICROSCOPIC INDICATED
[2018-07-21] MEDS: MAGNESIUM CHLORIDE 64 MG TABLET.DR PO SCH (09:00)
[2018-07-21] MEDS: ASCORBIC ACID 500 MG TABLET PO SCH (09:32)
[2018-07-21] MEDS: GUAIFENESIN ER 600 MG TABLET PO SCH ×2 (09:32→21:05)
[2018-07-21] MEDS: FERROUS SULFATE 325 MG TABLET PO SCH (09:32)
[2018-07-21] MEDS: CHOLECALCIFEROL 1,000 UNIT TABLET PO SCH (09:32)
[2018-07-21] MEDS: CALCIUM/VITAMIN D3 250-125 TABLET PO SCH (09:32)
[2018-07-21] MEDS: OMEPRAZOLE 20 MG CAPSULE.DR PO SCH (09:32)
[2018-07-21] MEDS: LEVOTHYROXINE 25 MCG TABLET PO SCH (09:33)
[2018-07-21] MEDS: ALLOPURINOL 100 MG TABLET PO SCH (09:33)
[2018-07-21] MEDS: FLUCONAZOLE 200 MG/100 ML 100 ML IV SCH (11:38)
[2018-07-21] MEDS: CHOLESTYRAMINE LIGHT 4GM PACKET PO SCH ×2 (11:38→23:27)
[2018-07-21] MEDS ORDERED: AcetaZOLAMIDE INJ 500 MG IVPush ONE (12:00)
[2018-07-21] MEDS ORDERED: FUROSEMIDE 20 MG/2 ML IV ONE (12:00)
[2018-07-21] MEDS: MAGNESIUM CARBONATE 54 MG/5 ML ORAL SOL NG SCH ×2 (12:13→21:18)
--- NOTE | 2018-07-21 12:13 | NUR ---
TF GOAL when ordered: w/ propofol: VITAL HIGH PROTEIN @ 50ML/HR off propofol: VITAL HIGH PROTEIN @ 60ML/HR
[2018-07-21] MEDS ORDERED: ETOMIDATE 40 MG/20 ML ONE (15:41)
[2018-07-21] MEDS ORDERED: MIDAZOLAM 1 MG/ML, 2ML ONE (15:41)
[2018-07-21] MEDS ORDERED: PROPOFOL 10 MG/ML, 100ML IV ONE (15:41)
[2018-07-21] MEDS ORDERED: FUROSEMIDE 20 MG/2 ML IV SCH (17:00)
[2018-07-21] MEDS: AcetaZOLAMIDE INJ 500 MG IVPush SCH (21:17)
[2018-07-21] MEDS: PANTOPRAZOLE 40 MG IV IVPush SCH (21:17)
[2018-07-21] MEDS: LOVASTATIN 10 MG TABLET PO SCH (21:18)
[2018-07-21] MEDS: VANCOMYCIN 1,600 MG in SODIUM CHLORIDE 0.9% 250 ML IV SCH (21:19)
[2018-07-22] MEDS: PIPERACILLIN/TAZO/PMX 3.375GM 50 ML IV SCH ×4 (00:34→18:01)
[2018-07-22] MEDS: PROPOFOL 100 ML IV PRN ×4 (03:53→16:08)
[2018-07-22 04:00] VITALS: BP 98/39
[2018-07-22] MEDS: NOREPINEPHRINE 4 MG in SODIUM CHLORIDE 0.9% 246 ML IV PRN ×4 (04:57→22:13)
[2018-07-22 05:27] LABS: ANION GAP 7 mmol/L (5-15); CALCIUM 8.2 mg/dL (8.5-10.1); CHLORIDE 101 mmol/L (98-107); CREATININE 1.11 mg/dL (0.55-1.02)
[2018-07-22] MEDS ORDERED: HEPARIN 5,000 UNITS/ML, 1ML SQ SCH (06:00)
[2018-07-22] MEDS: ALBUTEROL/IPRATROPIUM 2.5MG/0.5MG, 3 ML NPPB SCH ×4 (06:05→18:40)
[2018-07-22] MEDS: BUDESONIDE 0.5 MG/2 ML INHA NPPB SCH ×2 (06:05→18:40)
[2018-07-22 06:22] LABS: MEAN CORPUSCULAR HEMOGLOBIN 26.2 pg (27.0-34.8); MEAN PLATELET VOLUME 5.9 fL (7.4-10.4); PLATELET COUNT 422 x10^3/uL (130-400); RED BLOOD COUNT 2.59 x10^6/uL (3.82-5.3); RED CELL DISTRIBUTION WIDTH 19.6 % (9.6-15.2)
[2018-07-22] MEDS: LEVOTHYROXINE 25 MCG TABLET PO SCH (06:39)
[2018-07-22 06:40] LABS: BASOPHILS # (AUTO) 0.01 x10^3/uL (0-0.1); BASOPHILS % (AUTO) 0 % (0-1); EOSINOPHILS # (AUTO) 0.43 x10^3/uL (0-0.4); EOSINOPHILS % (AUTO) 6 % (1-7); LYMPHOCYTES # (AUTO) 0.64 x10^3/uL (1-3.4); LYMPHOCYTES % (AUTO) 8 % (22-44); MD SCAN; MONOCYTES % (AUTO) 12 % (2-9); NEUTROPHILS # (AUTO) 5.71 x10^3/uL (1.8-6.8); NEUTROPHILS % (AUTO) 74 % (42-75)
[2018-07-22] MEDS ORDERED: FUROSEMIDE 20 MG/2 ML IV SCH (07:30)
[2018-07-22] MEDS: AcetaZOLAMIDE INJ 500 MG IVPush SCH (07:45)
[2018-07-22] MEDS: PANTOPRAZOLE 40 MG IV IVPush SCH ×2 (07:45→20:27)
[2018-07-22] MEDS: POTASSIUM CHLORIDE 20 MEQ TAB.ER.PRT PO SCH ×2 (07:45→20:26)
[2018-07-22] MEDS: CHOLECALCIFEROL 1,000 UNIT TABLET PO SCH (07:45)
[2018-07-22] MEDS: ASCORBIC ACID 500 MG TABLET PO SCH (07:46)
[2018-07-22] MEDS: CALCIUM/VITAMIN D3 250-125 TABLET PO SCH (07:46)
[2018-07-22] MEDS: ALLOPURINOL 100 MG TABLET PO SCH (07:46)
[2018-07-22] MEDS: CHOLESTYRAMINE LIGHT 4GM PACKET PO SCH (07:46)
[2018-07-22] MEDS: MAGNESIUM CARBONATE 54 MG/5 ML ORAL SOL NG SCH ×2 (07:47→20:27)
[2018-07-22] MEDS: FERROUS SULFATE 325 MG TABLET PO SCH (07:51)
[2018-07-22] MEDS: FUROSEMIDE 20 MG/2 ML IV SCH ×2 (08:18→20:27)
[2018-07-22] MEDS: FLUCONAZOLE 200 MG/100 ML 100 ML IV SCH (10:29)
[2018-07-22 11:44] VITALS: BP 98/55
[2018-07-22 12:01] VITALS: BP 96/52
[2018-07-22 15:30] VITALS: BP 79/49
[2018-07-22 15:45] VITALS: BP 83/52
[2018-07-22 20:12] VITALS: BP 88/48
[2018-07-22] MEDS: LOVASTATIN 10 MG TABLET PO SCH (20:26)
[2018-07-22] MEDS: ACETAMINOPHEN 325 MG TABLET PO PRN (21:06)
[2018-07-22] MEDS: VANCOMYCIN 1,600 MG in SODIUM CHLORIDE 0.9% 250 ML IV SCH (21:10)
[2018-07-23] MEDS: PIPERACILLIN/TAZO/PMX 3.375GM 50 ML IV SCH ×4 (00:59→20:12)
[2018-07-23] MEDS: PROPOFOL 100 ML IV PRN ×3 (01:00→16:57)
[2018-07-23] MEDS: NOREPINEPHRINE 4 MG in SODIUM CHLORIDE 0.9% 246 ML IV PRN ×2 (03:01→07:34)
[2018-07-23 04:00] VITALS: BP 85/45
[2018-07-23] MEDS: LEVOTHYROXINE 25 MCG TABLET PO SCH (05:52)
[2018-07-23 05:53] LABS: ANION GAP 8 mmol/L (5-15); CALCIUM 8.5 mg/dL (8.5-10.1); CHLORIDE 106 mmol/L (98-107)
[2018-07-23 05:54] LABS: CREATININE 1.63 mg/dL (0.55-1.02)
[2018-07-23 05:55] LABS: BASOPHILS # (AUTO) 0.01 x10^3/uL (0-0.1); BASOPHILS % (AUTO) 0 % (0-1); EOSINOPHILS # (AUTO) 0.45 x10^3/uL (0-0.4); EOSINOPHILS % (AUTO) 6 % (1-7); LYMPHOCYTES # (AUTO) 0.86 x10^3/uL (1-3.4); LYMPHOCYTES % (AUTO) 11 % (22-44); MD NO; MEAN CORPUSCULAR HEMOGLOBIN 26.7 pg (27.0-34.8); MEAN CORPUSCULAR HGB CONC 32.2 g/dL (32.4-35.8); MEAN CORPUSCULAR VOLUME 82.9 fL (80-100); MEAN PLATELET VOLUME 6.3 fL (7.4-10.4); MONOCYTES # (AUTO) 0.93 x10^3/uL (0.2-0.8); MONOCYTES % (AUTO) 12 % (2-9); NEUTROPHILS # (AUTO) 5.86 x10^3/uL (1.8-6.8); NEUTROPHILS % (AUTO) 72 % (42-75); PLATELET COUNT 411 x10^3/uL (130-400); RED BLOOD COUNT 3.03 x10^6/uL (3.82-5.3); RED CELL DISTRIBUTION WIDTH 18.4 % (9.6-15.2)
[2018-07-23] MEDS: BUDESONIDE 0.5 MG/2 ML INHA NPPB SCH ×2 (06:40→18:30)
[2018-07-23] MEDS: ALBUTEROL/IPRATROPIUM 2.5MG/0.5MG, 3 ML NPPB SCH ×4 (06:40→18:30)
[2018-07-23] MEDS: CALCIUM/VITAMIN D3 250-125 TABLET PO SCH (07:34)
[2018-07-23] MEDS: ALLOPURINOL 100 MG TABLET PO SCH (07:34)
[2018-07-23] MEDS: FERROUS SULFATE 325 MG TABLET PO SCH (07:34)
[2018-07-23] MEDS: PANTOPRAZOLE 40 MG IV IVPush SCH ×2 (07:34→20:12)
[2018-07-23] MEDS: CHOLECALCIFEROL 1,000 UNIT TABLET PO SCH (07:34)
[2018-07-23] MEDS: ASCORBIC ACID 500 MG TABLET PO SCH (07:34)
[2018-07-23] MEDS: MAGNESIUM CARBONATE 54 MG/5 ML ORAL SOL NG SCH ×2 (07:38→20:12)
[2018-07-23] MEDS ORDERED: AcetaZOLAMIDE INJ 500 MG IVPush SCH (09:00)
[2018-07-23] MEDS ORDERED: FUROSEMIDE 20 MG/2 ML IV SCH (09:00)
[2018-07-23] MEDS: FLUCONAZOLE 200 MG/100 ML 100 ML IV SCH (10:27)
[2018-07-23] MEDS ORDERED: PICC FLUSH PROTOCOL XX SCH (12:00)
[2018-07-23] MEDS: NOREPINEPHRINE 8 MG in SODIUM CHLORIDE 0.9% 242 ML IV PRN ×2 (12:01→22:26)
[2018-07-23] MEDS: LOVASTATIN 10 MG TABLET PO SCH (20:12)
[2018-07-23] MEDS: VASOPRESSIN 100 UNIT in SODIUM CHLORIDE 0.9% 495 ML IV PRN (22:27)
[2018-07-24] MEDS: PIPERACILLIN/TAZO/PMX 3.375GM 50 ML IV SCH ×4 (00:03→18:17)
[2018-07-24] MEDS: PROPOFOL 100 ML IV PRN (01:58)
[2018-07-24 04:00] VITALS: BP 105/39
[2018-07-24 04:57] LABS: ANION GAP 12 mmol/L (5-15); CHLORIDE 109 mmol/L (98-107); CREATININE 1.69 mg/dL (0.55-1.02); TRIGLYCERIDES 321 mg/dL (50-200)
[2018-07-24 05:05] LABS: MEAN CORPUSCULAR HEMOGLOBIN 26.5 pg (27.0-34.8); MEAN CORPUSCULAR HGB CONC 31.8 g/dL (32.4-35.8); MEAN CORPUSCULAR VOLUME 83.5 fL (80-100); MEAN PLATELET VOLUME 6.3 fL (7.4-10.4); PLATELET COUNT 400 x10^3/uL (130-400); RED BLOOD COUNT 2.84 x10^6/uL (3.82-5.3); RED CELL DISTRIBUTION WIDTH 19.3 % (9.6-15.2)
[2018-07-24 05:43] LABS: MD YES
[2018-07-24 05:44] LABS: EOS#(MANUAL) 0.53 x10^3/uL (0.0-0.4); EOS% (MANUAL) 7 % (1-7); METAMYELOCYTES# (MANUAL) 0.15 x10^3/uL (0-0); METAMYELOCYTES% (MANUAL) 2 % (0-1); REACTIVE LYMPHS # (MANUAL) 0.08 x10^3/uL (0-0); REACTIVE LYMPHS % (MANUAL) 1 % (0-0)
[2018-07-24 05:45] LABS: ANISOCYTOSIS 1+
[2018-07-24 05:46] LABS: <PLATELET ESTIMATE> ADEQUATE; <PLT MORPHOLOGY> NORMAL PLT MORPH; BASOPHILLIC STIPPLING 1+; POLYCHROMASIA 1+
[2018-07-24 05:47] LABS: BAND#(MANUAL) 0.38 x10^3/uL; BANDS%(MANUAL) 5 % (0-7); LYMPH#(MANUAL) 0.68 x10^3/uL (1-3.4); LYMPHS% (MANUAL) 9 % (22-44); MONOS#(MANUAL) 0.53 x10^3/uL (0.3-2.7); MONOS% (MANUAL) 7 % (2-9); SEG#(MANUAL) 5.24 x10^3/uL (1.8-6.8); SEGS% (MANUAL) 69 % (42-75)
[2018-07-24] MEDS: LEVOTHYROXINE 25 MCG TABLET PO SCH (05:52)
[2018-07-24] MEDS: BUDESONIDE 0.5 MG/2 ML INHA NPPB SCH ×2 (06:25→18:20)
[2018-07-24] MEDS: ALBUTEROL/IPRATROPIUM 2.5MG/0.5MG, 3 ML NPPB SCH ×4 (06:25→18:20)
[2018-07-24] MEDS ORDERED: SODIUM CHLORIDE 0.9% 1,000ML IVBOLUS ONE (09:00)
[2018-07-24] MEDS: MAGNESIUM CARBONATE 54 MG/5 ML ORAL SOL NG SCH (09:53)
[2018-07-24] MEDS: CHOLECALCIFEROL 1,000 UNIT TABLET PO SCH (09:53)
[2018-07-24] MEDS: ASCORBIC ACID 500 MG TABLET PO SCH (09:53)
[2018-07-24] MEDS: ALLOPURINOL 100 MG TABLET PO SCH (09:53)
[2018-07-24] MEDS: CALCIUM/VITAMIN D3 250-125 TABLET PO SCH (09:53)
[2018-07-24] MEDS: FERROUS SULFATE 325 MG TABLET PO SCH (09:53)
[2018-07-24] MEDS: FLUCONAZOLE 200 MG/100 ML 100 ML IV SCH (09:54)
[2018-07-24] MEDS: PANTOPRAZOLE 40 MG IV IVPush SCH ×2 (09:54→20:26)
[2018-07-24] MEDS ORDERED: SODIUM CHLORIDE 0.9%, 500ML IVBOLUS ONE (15:00)
[2018-07-24 16:47] LABS: OCCULT BLOOD POSITIVE (NEGATIVE)
[2018-07-24] MEDS: NOREPINEPHRINE 8 MG in SODIUM CHLORIDE 0.9% 242 ML IV PRN (18:50)
[2018-07-24] MEDS: morphine SULFATE 10 MG/ML, 1ML IVPush PRN (20:26)
[2018-07-24] MEDS: LOVASTATIN 10 MG TABLET PO SCH (20:26)
[2018-07-25] MEDS: PIPERACILLIN/TAZO/PMX 3.375GM 50 ML IV SCH ×4 (01:06→19:33)
[2018-07-25] MEDS: VASOPRESSIN 100 UNIT in SODIUM CHLORIDE 0.9% 495 ML IV PRN (01:07)
[2018-07-25 04:08] LABS: ANION GAP 8 mmol/L (5-15); CHLORIDE 108 mmol/L (98-107); CREATININE 1.64 mg/dL (0.55-1.02)
[2018-07-25 04:12] LABS: MEAN CORPUSCULAR HEMOGLOBIN 26.4 pg (27.0-34.8); MEAN CORPUSCULAR HGB CONC 32.4 g/dL (32.4-35.8); MEAN CORPUSCULAR VOLUME 81.6 fL (80-100); PLATELET COUNT 380 x10^3/uL (130-400); RED BLOOD COUNT 2.74 x10^6/uL (3.82-5.3)
[2018-07-25 04:42] LABS: BASOPHILS # (AUTO) 0.02 x10^3/uL (0-0.1); BASOPHILS % (AUTO) 0 % (0-1); EOSINOPHILS # (AUTO) 0.36 x10^3/uL (0-0.4); EOSINOPHILS % (AUTO) 5 % (1-7); LYMPHOCYTES # (AUTO) 0.87 x10^3/uL (1-3.4); LYMPHOCYTES % (AUTO) 11 % (22-44); MD SCAN; MONOCYTES # (AUTO) 0.69 x10^3/uL (0.2-0.8); MONOCYTES % (AUTO) 9 % (2-9); NEUTROPHILS # (AUTO) 5.91 x10^3/uL (1.8-6.8); NEUTROPHILS % (AUTO) 75 % (42-75)
[2018-07-25 05:27] VITALS: BP 91/62
[2018-07-25] MEDS: LEVOTHYROXINE 25 MCG TABLET PO SCH (05:41)
[2018-07-25] MEDS: BUDESONIDE 0.5 MG/2 ML INHA NPPB SCH ×2 (06:35→18:39)
[2018-07-25] MEDS: ALBUTEROL/IPRATROPIUM 2.5MG/0.5MG, 3 ML NPPB SCH ×4 (06:35→18:30)
[2018-07-25] MEDS: ALLOPURINOL 100 MG TABLET PO SCH (08:21)
[2018-07-25] MEDS: FERROUS SULFATE 325 MG TABLET PO SCH (08:21)
[2018-07-25] MEDS: PANTOPRAZOLE 40 MG IV IVPush SCH ×2 (08:21→19:32)
[2018-07-25] MEDS: ASCORBIC ACID 500 MG TABLET PO SCH (08:21)
[2018-07-25] MEDS: CHOLECALCIFEROL 1,000 UNIT TABLET PO SCH (08:21)
[2018-07-25] MEDS: CALCIUM/VITAMIN D3 250-125 TABLET PO SCH (08:21)
[2018-07-25] MEDS: FLUCONAZOLE 200 MG/100 ML 100 ML IV SCH (10:06)
[2018-07-25] MEDS ORDERED: MAGNESIUM SULFATE PMX 2GM/50ML 50 ML IV ONE (14:30)
[2018-07-25] MEDS ORDERED: POTASSIUM CHLORIDE 10% 40 MEQ/30 ML UDC PO ONE (14:30)
[2018-07-25] MEDS ORDERED: MORPHINE SULFATE 4 MG/ML, 1ML ONE (19:26)
[2018-07-25] MEDS: LOVASTATIN 10 MG TABLET PO SCH (19:32)
[2018-07-25] MEDS: morphine SULFATE 10 MG/ML, 1ML IVPush PRN (19:33)
[2018-07-26] MEDS: PIPERACILLIN/TAZO/PMX 3.375GM 50 ML IV SCH ×4 (00:38→17:45)
[2018-07-26 04:00] VITALS: BP 107/42
[2018-07-26 04:46] LABS: MEAN CORPUSCULAR HGB CONC 32.9 g/dL (32.4-35.8); MEAN CORPUSCULAR VOLUME 82.3 fL (80-100); MEAN PLATELET VOLUME 6.1 fL (7.4-10.4); PLATELET COUNT 363 x10^3/uL (130-400); RED BLOOD COUNT 2.74 x10^6/uL (3.82-5.3); RED CELL DISTRIBUTION WIDTH 19.4 % (9.6-15.2)
[2018-07-26 04:48] LABS: ANION GAP 6 mmol/L (5-15); CALCIUM 7.8 mg/dL (8.5-10.1); CHLORIDE 108 mmol/L (98-107); CREATININE 1.65 mg/dL (0.55-1.02)
[2018-07-26 05:03] LABS: BASOPHILS # (AUTO) 0.01 x10^3/uL (0-0.1); BASOPHILS % (AUTO) 0 % (0-1); EOSINOPHILS # (AUTO) 0.35 x10^3/uL (0-0.4); EOSINOPHILS % (AUTO) 4 % (1-7); LYMPHOCYTES # (AUTO) 0.85 x10^3/uL (1-3.4); LYMPHOCYTES % (AUTO) 11 % (22-44); MD SCAN; MONOCYTES # (AUTO) 0.61 x10^3/uL (0.2-0.8); MONOCYTES % (AUTO) 8 % (2-9); NEUTROPHILS # (AUTO) 6.21 x10^3/uL (1.8-6.8); NEUTROPHILS % (AUTO) 77 % (42-75)
[2018-07-26] MEDS: LEVOTHYROXINE 25 MCG TABLET PO SCH (05:35)
[2018-07-26] MEDS: ALBUTEROL/IPRATROPIUM 2.5MG/0.5MG, 3 ML NPPB SCH (06:06)
[2018-07-26] MEDS: BUDESONIDE 0.5 MG/2 ML INHA NPPB SCH ×2 (06:06→18:20)
[2018-07-26] MEDS: OXYcodone IR 5MG TABLET PO PRN (06:29)
[2018-07-26] MEDS ORDERED: POTASSIUM CHLORIDE 10% 40 MEQ/30 ML UDC PO ONE ×2 (07:00→12:00)
[2018-07-26] MEDS: CALCIUM/VITAMIN D3 250-125 TABLET PO SCH (08:55)
[2018-07-26] MEDS: ASCORBIC ACID 500 MG TABLET PO SCH (08:55)
[2018-07-26] MEDS: CHOLECALCIFEROL 1,000 UNIT TABLET PO SCH (08:55)
[2018-07-26] MEDS: MIDODRINE 5 MG TABLET PO SCH ×3 (08:55→19:58)
[2018-07-26] MEDS: FERROUS SULFATE 325 MG TABLET PO SCH (08:55)
[2018-07-26] MEDS: ALLOPURINOL 100 MG TABLET PO SCH (08:55)
[2018-07-26] MEDS: PANTOPRAZOLE 40 MG IV IVPush SCH ×2 (08:56→19:58)
[2018-07-26] MEDS: ALBUTEROL/IPRATROPIUM 2.5MG/0.5MG, 3 ML INLINE SCH ×4 (10:00→22:00)
[2018-07-26] MEDS: FLUCONAZOLE 200 MG/100 ML 100 ML IV SCH (10:57)
[2018-07-26] MEDS ORDERED: MIDAZOLAM 1 MG/ML, 2ML ONE (14:54)
[2018-07-26] MEDS ORDERED: FENTANYL PF 100 MCG/2ML ONE (14:54)
[2018-07-26] MEDS: VASOPRESSIN 100 UNIT in SODIUM CHLORIDE 0.9% 495 ML IV PRN (19:00)
[2018-07-26] MEDS: LOVASTATIN 10 MG TABLET PO SCH (19:58)
[2018-07-27] MEDS: PIPERACILLIN/TAZO/PMX 3.375GM 50 ML IV SCH ×4 (00:29→17:01)
[2018-07-27] MEDS: LIDOCAINE-MPF 1%, 2ML ENDO PRN (00:45)
[2018-07-27] MEDS: ALBUTEROL/IPRATROPIUM 2.5MG/0.5MG, 3 ML INLINE SCH ×6 (03:15→22:33)
[2018-07-27 04:00] VITALS: BP 105/43
[2018-07-27 04:34] LABS: MEAN CORPUSCULAR HEMOGLOBIN 26.5 pg (27.0-34.8); MEAN CORPUSCULAR HGB CONC 32.6 g/dL (32.4-35.8); MEAN CORPUSCULAR VOLUME 81.3 fL (80-100); MEAN PLATELET VOLUME 6.5 fL (7.4-10.4); PLATELET COUNT 384 x10^3/uL (130-400); RED BLOOD COUNT 2.85 x10^6/uL (3.82-5.3); RED CELL DISTRIBUTION WIDTH 19.1 % (9.6-15.2)
[2018-07-27 04:47] LABS: ANION GAP 3 mmol/L (5-15); CALCIUM 8.2 mg/dL (8.5-10.1); CHLORIDE 108 mmol/L (98-107)
[2018-07-27 04:48] LABS: CREATININE 1.56 mg/dL (0.55-1.02); TRIGLYCERIDES 239 mg/dL (50-200)
[2018-07-27] MEDS: LEVOTHYROXINE 25 MCG TABLET PO SCH (05:27)
[2018-07-27 05:55] LABS: BASOPHILS # (AUTO) 0.03 x10^3/uL (0-0.1); BASOPHILS % (AUTO) 0 % (0-1); EOSINOPHILS # (AUTO) 0.44 x10^3/uL (0-0.4); EOSINOPHILS % (AUTO) 4 % (1-7); LYMPHOCYTES # (AUTO) 1.24 x10^3/uL (1-3.4); LYMPHOCYTES % (AUTO) 11 % (22-44); MD SCAN; MONOCYTES # (AUTO) 0.76 x10^3/uL (0.2-0.8); MONOCYTES % (AUTO) 7 % (2-9); NEUTROPHILS # (AUTO) 8.57 x10^3/uL (1.8-6.8); NEUTROPHILS % (AUTO) 78 % (42-75)
[2018-07-27] MEDS: OXYcodone IR 5MG TABLET PO PRN (06:12)
[2018-07-27] MEDS: BUDESONIDE 0.5 MG/2 ML INHA NPPB SCH ×2 (06:47→21:09)
[2018-07-27] MEDS: CHOLECALCIFEROL 1,000 UNIT TABLET PO SCH (08:29)
[2018-07-27] MEDS: PANTOPRAZOLE 40 MG IV IVPush SCH ×2 (08:30→21:36)
[2018-07-27] MEDS: MIDODRINE 5 MG TABLET PO SCH ×4 (08:30→21:37)
[2018-07-27] MEDS: ALLOPURINOL 100 MG TABLET PO SCH (08:30)
[2018-07-27] MEDS: FERROUS SULFATE 325 MG TABLET PO SCH (08:30)
[2018-07-27] MEDS: CALCIUM/VITAMIN D3 250-125 TABLET PO SCH (08:30)
[2018-07-27] MEDS: ASCORBIC ACID 500 MG TABLET PO SCH (08:30)
[2018-07-27] MEDS: FLUCONAZOLE 200 MG/100 ML 100 ML IV SCH (10:51)
[2018-07-27] MEDS ORDERED: VASOPRESSIN 100 UNIT in SODIUM CHLORIDE 0.9% 495 ML IV PRN (13:30)
[2018-07-27] MEDS ORDERED: FENTANYL PF 100 MCG/2ML IVPush PRN (13:30)
[2018-07-27] MEDS ORDERED: ALBUMIN HUMAN 25% 50 ML IV ONE (13:30)
[2018-07-27] MEDS ORDERED: NOREPINEPHRINE 4 MG in SODIUM CHLORIDE 0.9% 246 ML IV PRN (13:30)
[2018-07-27] MEDS: PROPOFOL 100 ML IV PRN (13:56)
[2018-07-27] MEDS: LOVASTATIN 10 MG TABLET PO SCH (21:37)
[2018-07-28] MEDS: PIPERACILLIN/TAZO/PMX 3.375GM 50 ML IV SCH ×2 (00:22→05:40)
[2018-07-28] MEDS: PROPOFOL 100 ML IV PRN ×2 (00:22→06:44)
[2018-07-28] MEDS: ALBUTEROL/IPRATROPIUM 2.5MG/0.5MG, 3 ML INLINE SCH ×6 (02:24→22:18)
[2018-07-28 04:50] VITALS: BP 96/51
[2018-07-28] MEDS: LEVOTHYROXINE 25 MCG TABLET PO SCH (05:39)
[2018-07-28] MEDS: BUDESONIDE 0.5 MG/2 ML INHA NPPB SCH ×2 (06:00→19:35)
[2018-07-28 06:24] LABS: ANION GAP 6 mmol/L (5-15); CHLORIDE 102 mmol/L (98-107); CREATININE 1.46 mg/dL (0.55-1.02)
[2018-07-28 06:45] LABS: MEAN CORPUSCULAR HEMOGLOBIN 26.5 pg (27.0-34.8); MEAN CORPUSCULAR HGB CONC 32.3 g/dL (32.4-35.8); MEAN CORPUSCULAR VOLUME 82.1 fL (80-100); MEAN PLATELET VOLUME 6.9 fL (7.4-10.4); PLATELET COUNT 423 x10^3/uL (130-400); RED BLOOD COUNT 2.69 x10^6/uL (3.82-5.3); RED CELL DISTRIBUTION WIDTH 19.3 % (9.6-15.2)
[2018-07-28 07:34] LABS: BASOPHILS # (AUTO) 0.05 x10^3/uL (0-0.1); BASOPHILS % (AUTO) 1 % (0-1); EOSINOPHILS # (AUTO) 0.36 x10^3/uL (0-0.4); EOSINOPHILS % (AUTO) 4 % (1-7); LYMPHOCYTES # (AUTO) 1.16 x10^3/uL (1-3.4); LYMPHOCYTES % (AUTO) 11 % (22-44); MD SCAN; MONOCYTES # (AUTO) 0.79 x10^3/uL (0.2-0.8); MONOCYTES % (AUTO) 8 % (2-9); NEUTROPHILS # (AUTO) 7.99 x10^3/uL (1.8-6.8); NEUTROPHILS % (AUTO) 77 % (42-75)
[2018-07-28] MEDS: POTASSIUM CHLORIDE 10% 40 MEQ/30 ML UDC PO SCH ×2 (10:22→21:12)
[2018-07-28] MEDS: PANTOPRAZOLE 40 MG IV IVPush SCH ×2 (10:22→21:11)
[2018-07-28] MEDS: FERROUS SULFATE 325 MG TABLET PO SCH (10:22)
[2018-07-28] MEDS: ALLOPURINOL 100 MG TABLET PO SCH (10:23)
[2018-07-28] MEDS: CHOLECALCIFEROL 1,000 UNIT TABLET PO SCH (10:23)
[2018-07-28] MEDS: MIDODRINE 5 MG TABLET PO SCH ×3 (10:23→21:11)
[2018-07-28] MEDS: ASCORBIC ACID 500 MG TABLET PO SCH (10:23)
[2018-07-28] MEDS: CALCIUM/VITAMIN D3 250-125 TABLET PO SCH (10:24)
[2018-07-28] MEDS: FLUCONAZOLE 200 MG/100 ML 100 ML IV SCH (10:24)
[2018-07-28] MEDS: AcetaZOLAMIDE INJ 500 MG IVPush SCH ×2 (10:29→21:06)
[2018-07-28] MEDS: OXYcodone IR 5MG TABLET PO PRN (12:13)
[2018-07-28] MEDS ORDERED: VASOPRESSIN 100 UNIT in SODIUM CHLORIDE 0.9% 495 ML IV PRN (13:30)
[2018-07-28] MEDS: LOVASTATIN 10 MG TABLET PO SCH (21:11)
[2018-07-29] MEDS: ALBUTEROL/IPRATROPIUM 2.5MG/0.5MG, 3 ML INLINE SCH ×6 (03:03→22:22)
[2018-07-29 04:00] VITALS: BP 126/49
[2018-07-29 04:51] LABS: MEAN CORPUSCULAR HEMOGLOBIN 26.2 pg (27.0-34.8); MEAN CORPUSCULAR HGB CONC 31.7 g/dL (32.4-35.8); MEAN CORPUSCULAR VOLUME 82.6 fL (80-100); MEAN PLATELET VOLUME 6.9 fL (7.4-10.4); PLATELET COUNT 488 x10^3/uL (130-400); RED BLOOD COUNT 2.78 x10^6/uL (3.82-5.3); RED CELL DISTRIBUTION WIDTH 19.5 % (9.6-15.2)
[2018-07-29 04:53] LABS: ANION GAP 4 mmol/L (5-15); CHLORIDE 107 mmol/L (98-107); CREATININE 1.37 mg/dL (0.55-1.02)
[2018-07-29 05:41] LABS: BASOPHILS # (AUTO) 0.04 x10^3/uL (0-0.1); BASOPHILS % (AUTO) 0 % (0-1); EOSINOPHILS # (AUTO) 0.29 x10^3/uL (0-0.4); EOSINOPHILS % (AUTO) 3 % (1-7); LYMPHOCYTES % (AUTO) 13 % (22-44); MD SCAN; MONOCYTES % (AUTO) 8 % (2-9); NEUTROPHILS # (AUTO) 7.76 x10^3/uL (1.8-6.8); NEUTROPHILS % (AUTO) 76 % (42-75)
[2018-07-29] MEDS: LEVOTHYROXINE 25 MCG TABLET PO SCH (06:08)
[2018-07-29] MEDS: LIDOCAINE-MPF 1%, 2ML ENDO PRN (06:25)
[2018-07-29] MEDS: BUDESONIDE 0.5 MG/2 ML INHA NPPB SCH ×2 (06:40→18:52)
[2018-07-29] MEDS: ALBUMIN HUMAN 25% 100 ML IV SCH ×2 (08:09→15:51)
[2018-07-29] MEDS: FERROUS SULFATE 325 MG TABLET PO SCH (09:08)
[2018-07-29] MEDS: MIDODRINE 5 MG TABLET PO SCH ×3 (09:08→22:32)
[2018-07-29] MEDS: CHOLECALCIFEROL 1,000 UNIT TABLET PO SCH (09:08)
[2018-07-29] MEDS: ASCORBIC ACID 500 MG TABLET PO SCH (09:08)
[2018-07-29] MEDS: OXYcodone IR 5MG TABLET PO PRN ×2 (09:08→17:39)
[2018-07-29] MEDS: ALLOPURINOL 100 MG TABLET PO SCH (09:08)
[2018-07-29] MEDS: AcetaZOLAMIDE INJ 500 MG IVPush SCH ×2 (09:09→21:26)
[2018-07-29] MEDS: PANTOPRAZOLE 40 MG IV IVPush SCH ×2 (09:09→21:26)
[2018-07-29] MEDS: CALCIUM/VITAMIN D3 250-125 TABLET PO SCH (09:09)
[2018-07-29] MEDS: FLUCONAZOLE 200 MG/100 ML 100 ML IV SCH (10:52)
[2018-07-29] MEDS ORDERED: FUROSEMIDE 20 MG/2 ML IV ONE (21:00)
[2018-07-29] MEDS: LOVASTATIN 10 MG TABLET PO SCH (21:26)
[2018-07-30] MEDS: ALBUMIN HUMAN 25% 100 ML IV SCH ×3 (00:25→16:00)
[2018-07-30] MEDS: ALBUTEROL/IPRATROPIUM 2.5MG/0.5MG, 3 ML INLINE SCH ×6 (02:37→22:57)
[2018-07-30 04:00] VITALS: BP 100/46
[2018-07-30] MEDS: LEVOTHYROXINE 25 MCG TABLET PO SCH (05:23)
[2018-07-30] MEDS: OXYcodone IR 5MG TABLET PO PRN ×2 (05:23→18:10)
[2018-07-30 06:21] LABS: BASOPHILS # (AUTO) 0.08 x10^3/uL (0-0.1); BASOPHILS % (AUTO) 1 % (0-1); EOSINOPHILS # (AUTO) 0.38 x10^3/uL (0-0.4); EOSINOPHILS % (AUTO) 4 % (1-7); LYMPHOCYTES # (AUTO) 1.38 x10^3/uL (1-3.4); LYMPHOCYTES % (AUTO) 14 % (22-44); MD NO; MEAN CORPUSCULAR HEMOGLOBIN 26.3 pg (27.0-34.8); MEAN CORPUSCULAR HGB CONC 32.1 g/dL (32.4-35.8); MEAN PLATELET VOLUME 7.4 fL (7.4-10.4); MONOCYTES # (AUTO) 0.97 x10^3/uL (0.2-0.8); MONOCYTES % (AUTO) 10 % (2-9); NEUTROPHILS # (AUTO) 7.18 x10^3/uL (1.8-6.8); NEUTROPHILS % (AUTO) 72 % (42-75); PLATELET COUNT 505 x10^3/uL (130-400); RED BLOOD COUNT 2.59 x10^6/uL (3.82-5.3); RED CELL DISTRIBUTION WIDTH 19.7 % (9.6-15.2)
[2018-07-30 06:26] LABS: ANION GAP 8 mmol/L (5-15); CALCIUM 8.6 mg/dL (8.5-10.1); CHLORIDE 109 mmol/L (98-107); CREATININE 1.43 mg/dL (0.55-1.02); TRIGLYCERIDES 238 mg/dL (50-200)
[2018-07-30] MEDS: BUDESONIDE 0.5 MG/2 ML INHA NPPB SCH ×2 (08:00→19:05)
[2018-07-30] MEDS ORDERED: FUROSEMIDE 20 MG/2 ML IV SCH (08:00)
[2018-07-30] MEDS ORDERED: CATHFLO-ALTEPLASE 2 MG/2 ML CATHFLUSH ONE (09:00)
[2018-07-30] MEDS: CALCIUM/VITAMIN D3 250-125 TABLET PO SCH (09:35)
[2018-07-30] MEDS: PANTOPRAZOLE 40 MG IV IVPush SCH ×2 (09:35→20:25)
[2018-07-30] MEDS: CHOLECALCIFEROL 1,000 UNIT TABLET PO SCH (09:35)
[2018-07-30] MEDS: FERROUS SULFATE 325 MG TABLET PO SCH (09:35)
[2018-07-30] MEDS: AcetaZOLAMIDE INJ 500 MG IVPush SCH ×2 (09:35→20:25)
[2018-07-30] MEDS: ASCORBIC ACID 500 MG TABLET PO SCH (09:35)
[2018-07-30] MEDS: POTASSIUM CHLORIDE 10% 40 MEQ/30 ML UDC PO SCH ×2 (09:35→20:25)
[2018-07-30] MEDS: MIDODRINE 5 MG TABLET PO SCH ×3 (09:36→20:26)
[2018-07-30] MEDS: FUROSEMIDE 100 MG in SODIUM CHLORIDE 0.9% 90 ML IV SCH (09:36)
[2018-07-30] MEDS: ALLOPURINOL 100 MG TABLET PO SCH (09:36)
[2018-07-30] MEDS: FLUCONAZOLE 200 MG/100 ML 100 ML IV SCH (10:43)
[2018-07-30 14:53] VITALS: BP 113/53
[2018-07-30 15:10] VITALS: BP 122/43
[2018-07-30 15:30] VITALS: BP 124/54
[2018-07-30 18:15] VITALS: BP 120/53
[2018-07-30] MEDS: LOVASTATIN 10 MG TABLET PO SCH (20:26)
[2018-07-31] MEDS: ALBUMIN HUMAN 25% 100 ML IV SCH ×4 (00:12→23:48)
[2018-07-31] MEDS: OXYcodone IR 5MG TABLET PO PRN (00:12)
[2018-07-31] MEDS: ALBUTEROL/IPRATROPIUM 2.5MG/0.5MG, 3 ML INLINE SCH ×2 (02:27→07:00)
[2018-07-31] MEDS: LEVOTHYROXINE 25 MCG TABLET PO SCH (05:04)
[2018-07-31 05:33] LABS: ANION GAP 7 mmol/L (5-15); CALCIUM 8.8 mg/dL (8.5-10.1); CHLORIDE 106 mmol/L (98-107); CREATININE 1.57 mg/dL (0.55-1.02)
[2018-07-31 05:34] LABS: BASOPHILS % (AUTO) 1 % (0-1); EOSINOPHILS # (AUTO) 0.24 x10^3/uL (0-0.4); EOSINOPHILS % (AUTO) 3 % (1-7); LYMPHOCYTES # (AUTO) 1.55 x10^3/uL (1-3.4); LYMPHOCYTES % (AUTO) 16 % (22-44); MD NO; MEAN CORPUSCULAR HEMOGLOBIN 27.2 pg (27.0-34.8); MEAN CORPUSCULAR HGB CONC 32.4 g/dL (32.4-35.8); MEAN CORPUSCULAR VOLUME 84.1 fL (80-100); MEAN PLATELET VOLUME 6.6 fL (7.4-10.4); MONOCYTES # (AUTO) 1.04 x10^3/uL (0.2-0.8); MONOCYTES % (AUTO) 11 % (2-9); NEUTROPHILS # (AUTO) 6.53 x10^3/uL (1.8-6.8); NEUTROPHILS % (AUTO) 69 % (42-75); PLATELET COUNT 507 x10^3/uL (130-400); RED BLOOD COUNT 2.98 x10^6/uL (3.82-5.3); RED CELL DISTRIBUTION WIDTH 19.7 % (9.6-15.2)
[2018-07-31] MEDS: BUDESONIDE 0.5 MG/2 ML INHA NPPB SCH (08:00)
[2018-07-31] MEDS ORDERED: RACEPINEPHRINE INH 2.25%, 0.5ML ONE (08:40)
[2018-07-31] MEDS: DEXAMETHASONE 4 MG/ML, 1ML IVPush SCH ×4 (09:29→23:48)
[2018-07-31] MEDS ORDERED: RACEPINEPHRINE INH 2.25%, 0.5ML NPPB PRN (09:30)
[2018-07-31] MEDS: CHOLECALCIFEROL 1,000 UNIT TABLET PO SCH (10:04)
[2018-07-31] MEDS: FERROUS SULFATE 325 MG TABLET PO SCH (10:04)
[2018-07-31] MEDS: MIDODRINE 5 MG TABLET PO SCH ×3 (10:05→20:39)
[2018-07-31] MEDS: CALCIUM/VITAMIN D3 250-125 TABLET PO SCH (10:05)
[2018-07-31] MEDS: ASCORBIC ACID 500 MG TABLET PO SCH (10:05)
[2018-07-31] MEDS: ALLOPURINOL 100 MG TABLET PO SCH (10:05)
[2018-07-31] MEDS: POTASSIUM CHLORIDE 10% 40 MEQ/30 ML UDC PO SCH ×2 (10:05→20:39)
[2018-07-31] MEDS: FLUCONAZOLE 200 MG/100 ML 100 ML IV SCH (10:06)
[2018-07-31] MEDS: PANTOPRAZOLE 40 MG IV IVPush SCH ×2 (10:06→20:39)
[2018-07-31] MEDS: ALBUTEROL/IPRATROPIUM 2.5MG/0.5MG, 3 ML NPPB SCH ×4 (11:00→22:54)
[2018-07-31] MEDS: AcetaZOLAMIDE INJ 500 MG IVPush SCH ×2 (11:24→20:39)
[2018-07-31] MEDS: FUROSEMIDE 100 MG in SODIUM CHLORIDE 0.9% 90 ML IV SCH (11:25)
[2018-07-31] MEDS ORDERED: ALBUMIN HUMAN 25% 100 ML ONE (16:46)
[2018-07-31] MEDS: BUDESONIDE 0.5 MG/2 ML INHA INH SCH (19:04)
[2018-07-31] MEDS: LOVASTATIN 10 MG TABLET PO SCH (20:39)
[2018-08-01] MEDS ORDERED: CATHFLO-ALTEPLASE 2 MG/2 ML CATHFLUSH ONE ×2 (00:30→03:00)
[2018-08-01] MEDS: ALBUTEROL/IPRATROPIUM 2.5MG/0.5MG, 3 ML NPPB SCH ×6 (02:40→22:32)
[2018-08-01] MEDS: DEXAMETHASONE 4 MG/ML, 1ML IVPush SCH ×6 (03:01→23:05)
[2018-08-01 04:22] LABS: BASOPHILS % (AUTO) 0 % (0-1); EOSINOPHILS # (AUTO) 0.04 x10^3/uL (0-0.4); EOSINOPHILS % (AUTO) 1 % (1-7); LYMPHOCYTES # (AUTO) 0.66 x10^3/uL (1-3.4); LYMPHOCYTES % (AUTO) 8 % (22-44); MD NO; MEAN CORPUSCULAR HEMOGLOBIN 27.1 pg (27.0-34.8); MEAN CORPUSCULAR HGB CONC 31.8 g/dL (32.4-35.8); MEAN CORPUSCULAR VOLUME 85.1 fL (80-100); MEAN PLATELET VOLUME 7.7 fL (7.4-10.4); MONOCYTES # (AUTO) 0.09 x10^3/uL (0.2-0.8); MONOCYTES % (AUTO) 1 % (2-9); NEUTROPHILS # (AUTO) 7.77 x10^3/uL (1.8-6.8); NEUTROPHILS % (AUTO) 91 % (42-75); PLATELET COUNT 487 x10^3/uL (130-400); RED BLOOD COUNT 3.04 x10^6/uL (3.82-5.3); RED CELL DISTRIBUTION WIDTH 18.9 % (9.6-15.2)
[2018-08-01 04:40] LABS: ANION GAP 7 mmol/L (5-15); CALCIUM 9.2 mg/dL (8.5-10.1); CHLORIDE 105 mmol/L (98-107)
[2018-08-01] MEDS: LEVOTHYROXINE 25 MCG TABLET PO SCH (05:22)
[2018-08-01] MEDS: POTASSIUM CHLORIDE 10% 40 MEQ/30 ML UDC PO SCH ×2 (07:39→20:47)
[2018-08-01] MEDS: PANTOPRAZOLE 40 MG IV IVPush SCH ×2 (07:39→20:47)
[2018-08-01] MEDS: ALLOPURINOL 100 MG TABLET PO SCH (07:40)
[2018-08-01] MEDS: MIDODRINE 5 MG TABLET PO SCH ×3 (07:40→20:47)
[2018-08-01] MEDS: CHOLECALCIFEROL 1,000 UNIT TABLET PO SCH (07:40)
[2018-08-01] MEDS: CALCIUM/VITAMIN D3 250-125 TABLET PO SCH (07:40)
[2018-08-01] MEDS: ASCORBIC ACID 500 MG TABLET PO SCH (07:40)
[2018-08-01] MEDS: FERROUS SULFATE 325 MG TABLET PO SCH (07:40)
[2018-08-01] MEDS: ALBUMIN HUMAN 25% 100 ML IV SCH (07:40)
[2018-08-01] MEDS: BUDESONIDE 0.5 MG/2 ML INHA INH SCH ×2 (09:00→19:24)
[2018-08-01] MEDS: FLUCONAZOLE 200 MG/100 ML 100 ML IV SCH (09:35)
[2018-08-01] MEDS: AcetaZOLAMIDE INJ 500 MG IVPush SCH ×2 (09:36→20:50)
[2018-08-01] MEDS: ACETAMINOPHEN 325 MG TABLET PO PRN ×2 (09:49→19:39)
[2018-08-01] MEDS ORDERED: ALBUMIN HUMAN 25% 100 ML IV SCH (19:30)
[2018-08-01] MEDS: LOVASTATIN 10 MG TABLET PO SCH (20:47)
[2018-08-02] MEDS: ALBUTEROL/IPRATROPIUM 2.5MG/0.5MG, 3 ML NPPB SCH ×3 (02:30→10:33)
[2018-08-02] MEDS: DEXAMETHASONE 4 MG/ML, 1ML IVPush SCH ×2 (03:11→08:54)
[2018-08-02] MEDS: OXYcodone IR 5MG TABLET PO PRN (03:23)
[2018-08-02 05:02] LABS: BASOPHILS # (AUTO) 0.01 x10^3/uL (0-0.1); BASOPHILS % (AUTO) 0 % (0-1); EOSINOPHILS # (AUTO) 0.04 x10^3/uL (0-0.4); EOSINOPHILS % (AUTO) 0 % (1-7); LYMPHOCYTES # (AUTO) 0.57 x10^3/uL (1-3.4); LYMPHOCYTES % (AUTO) 5 % (22-44); MD NO; MEAN CORPUSCULAR HEMOGLOBIN 26.4 pg (27.0-34.8); MEAN CORPUSCULAR HGB CONC 30.8 g/dL (32.4-35.8); MEAN CORPUSCULAR VOLUME 85.8 fL (80-100); MEAN PLATELET VOLUME 7.9 fL (7.4-10.4); MONOCYTES # (AUTO) 0.25 x10^3/uL (0.2-0.8); MONOCYTES % (AUTO) 2 % (2-9); NEUTROPHILS # (AUTO) 10.25 x10^3/uL (1.8-6.8); NEUTROPHILS % (AUTO) 92 % (42-75); PLATELET COUNT 499 x10^3/uL (130-400); RED BLOOD COUNT 3.13 x10^6/uL (3.82-5.3); RED CELL DISTRIBUTION WIDTH 19.4 % (9.6-15.2)
[2018-08-02] MEDS: LEVOTHYROXINE 25 MCG TABLET PO SCH (05:11)
[2018-08-02] MEDS: FUROSEMIDE 100 MG in SODIUM CHLORIDE 0.9% 90 ML IV SCH (05:11)
[2018-08-02 05:13] LABS: ANION GAP 7 mmol/L (5-15); CALCIUM 9.7 mg/dL (8.5-10.1); CHLORIDE 107 mmol/L (98-107)
[2018-08-02 05:19] LABS: CREATININE 2.03 mg/dL (0.55-1.02)
[2018-08-02] MEDS: BUDESONIDE 0.5 MG/2 ML INHA INH SCH (07:19)
[2018-08-02] MEDS: CALCIUM/VITAMIN D3 250-125 TABLET PO SCH (08:54)
[2018-08-02] MEDS: ALLOPURINOL 100 MG TABLET PO SCH (08:54)
[2018-08-02] MEDS: FERROUS SULFATE 325 MG TABLET PO SCH (08:54)
[2018-08-02] MEDS: CHOLECALCIFEROL 1,000 UNIT TABLET PO SCH (08:55)
[2018-08-02] MEDS: MIDODRINE 5 MG TABLET PO SCH (08:55)
[2018-08-02] MEDS: PANTOPRAZOLE 40 MG IV IVPush SCH (08:55)
[2018-08-02] MEDS: ASCORBIC ACID 500 MG TABLET PO SCH (08:55)
[2018-08-02] MEDS: POTASSIUM CHLORIDE 10% 40 MEQ/30 ML UDC PO SCH (08:55)
[2018-08-02] MEDS ORDERED: INSULIN LISPRO 100 UNITS/ML, PEN SQ-INSULIN SCH (10:00)
[2018-08-02] MEDS: AcetaZOLAMIDE INJ 500 MG IVPush SCH (10:08)
[2018-08-02] MEDS: FLUCONAZOLE 200 MG/100 ML 100 ML IV SCH (10:38)
[2018-08-02] MEDS ORDERED: LORazepam 2 MG/ML, 1ML ONE (12:19)
[2018-08-02] MEDS ORDERED: MORPHINE SULFATE 4 MG/ML, 1ML ONE (12:19)
[2018-08-02] MEDS: LORazepam 2 MG/ML, 1ML IV PRN ×2 (12:30→19:07)
[2018-08-02] MEDS ORDERED: morphine SULFATE 10 MG/ML, 1ML IV PRN (13:00)
[2018-08-02] MEDS ORDERED: LORazepam 2 MG/ML, 1ML IVPush PRN (13:00)
[2018-08-02] MEDS ORDERED: ATROPINE OPHTH SOLN 1%, 5ML PO PRN (13:00)
[2018-08-02] MEDS ORDERED: morphine SULFATE 10 MG/ML, 1ML IVPush PRN (13:00)
[2018-08-02] MEDS ORDERED: ATROPINE OPHTH SOLN 1%, 2ML PO PRN (13:00)
[2018-08-02] MEDS ORDERED: morphine SULFATE 125 MG in SODIUM CHLORIDE 0.9% 237.5 ML IV SCH (13:30)
[2018-08-03] MEDS: LORazepam 2 MG/ML, 1ML IV PRN (11:06)
== END 2018-08-03 23:46 | disposition expired | DRG 853 ==
LOC: ED 17:23 → EDIP 18:48 → 4EST 19:15 → 3NE 23:55 → CCU 07-21 03:34 → CSU 07-26 23:44 → CCU 07-31 10:48 → 3NW 08-02 14:39
PROVIDERS: ADMIT Internal Medicine; ATTEND Internal Medicine
PROC: 0B938ZZ Drainage of Right Main Bronchus, Via Natural or Artificial Opening Endoscopic (ICD-10-PCS; principal; 2018-07-21)
PROC: 0B9M8ZZ Drainage of Bilateral Lungs, Via Natural or Artificial Opening Endoscopic (ICD-10-PCS; 2018-07-21)
PROC: 0B918ZZ Drainage of Trachea, Via Natural or Artificial Opening Endoscopic (ICD-10-PCS; 2018-07-21)
PROC: 5A1955Z Respiratory Ventilation, Greater than 96 Consecutive Hours (ICD-10-PCS; 2018-07-21)
PROC: 0BH17EZ Insertion of Endotracheal Airway into Trachea, Via Natural or Artificial Opening (ICD-10-PCS; 2018-07-21)
PROC: 02HV33Z Insertion of Infusion Device into Superior Vena Cava, Percutaneous Approach (ICD-10-PCS; 2018-07-21)
PROC: B548ZZA Ultrasonography of Superior Vena Cava, Guidance (ICD-10-PCS; 2018-07-21)
PROC: 30233N1 Transfusion of Nonautologous Red Blood Cells into Peripheral Vein, Percutaneous Approach (ICD-10-PCS; 2018-07-22)
PROC: 0T768DZ Dilation of Right Ureter with Intraluminal Device, Via Natural or Artificial Opening Endoscopic (ICD-10-PCS; 2018-07-26)
PROC: 5A09457 Assistance with Respiratory Ventilation, 24-96 Consecutive Hours, Continuous Positive Airway Pressure (ICD-10-PCS; 2018-07-31)
DX: A41.9 Sepsis, unspecified organism (principal); J18.9 Pneumonia, unspecified organism; J96.21 Acute and chronic respiratory failure with hypoxia; E43 Unspecified severe protein-calorie malnutrition; N17.0 Acute kidney failure with tubular necrosis; I50.33 Acute on chronic diastolic (congestive) heart failure; J96.22 Acute and chronic respiratory failure with hypercapnia; R65.21 Severe sepsis with septic shock; J44.0 Chronic obstructive pulmonary disease with (acute) lower respiratory infection; G93.40 Encephalopathy, unspecified; I13.0 Hypertensive heart and chronic kidney disease with heart failure and stage 1 through stage 4 chronic kidney disease, or unspecified chronic kidney disease; J98.11 Atelectasis; N13.2 Hydronephrosis with renal and ureteral calculous obstruction; B37.49 Other urogenital candidiasis; E87.0 Hyperosmolality and hypernatremia; Z99.11 Dependence on respirator [ventilator] status; Z87.891 Personal history of nicotine dependence; Z87.442 Personal history of urinary calculi; J44.9 Chronic obstructive pulmonary disease, unspecified; I48.91 Unspecified atrial fibrillation; K21.9 Gastro-esophageal reflux disease without esophagitis; N18.9 Chronic kidney disease, unspecified; D25.9 Leiomyoma of uterus, unspecified; D50.9 Iron deficiency anemia, unspecified; D63.8 Anemia in other chronic diseases classified elsewhere; E03.9 Hypothyroidism, unspecified; E66.9 Obesity, unspecified; E78.5 Hyperlipidemia, unspecified; E83.42 Hypomagnesemia; N26.1 Atrophy of kidney (terminal); N81.10 Cystocele, unspecified; Z87.01 Personal history of pneumonia (recurrent); Z51.5 Encounter for palliative care; Z93.0 Tracheostomy status; Z99.81 Dependence on supplemental oxygen; Z68.30 Body mass index [BMI] 30.0-30.9, adult
CPT/HCPCS: 31622; 31624; 36415; 36569; 36600; 71045; 71275; 74018; 74176; 76000; 76770; 76937; 77001; 80048; 80053; 80061; 81001; 82040; 82272; 82533; 82803; 82947; 82962; 83036; 83605; 83735; 83880; 84100; 84145; 84439; 84443; 84478; 84484; 85025; 85610; 86078; 86850; 86870; 86900; 86902; 86922; 86923; 87040; 87070; 87081; 87086; 87106; 87205; 93005; 94002; 94003; 94150; 94640; 94660; 96374; 99291; G0378; J1100; J1644; J1940; J2250; J2543; J2704; J2997; J3370; J3490; J7620; J7626; P9047; Q9967; C1751; C1769; C2617; C9113; J1120; J1450; J1815; J2060; J2270; J3475; J7030; J7040; J7050; P9016